=== PATIENT | male | born 1940 | race Caucasian/White ===

== ENCOUNTER 2017-04-08 10:47 | Inpatient (IN) | payer MEDICARE, OTHER ==
[~2017-04-08] VITALS: Ht 172.7 cm; Wt 85.3 kg
[2017-04-08] VITALS (11 sets, daily range): BP systolic 137–182; BP diastolic 69–116
[2017-04-08] MEDS ORDERED: NITROGLYCERIN PACKET 1 GM PACKET ONE (10:54)
[2017-04-08] MEDS ORDERED: ASPIRIN 325 MG TABLET ONE (10:55)
[2017-04-08] MEDS ORDERED: NITROGLYCERIN PACKET 1 GM PACKET TD ONE (11:00)
[2017-04-08] MEDS ORDERED: ASPIRIN 325 MG TABLET PO ONE (11:00)
--- NOTE | 2017-04-08 11:00 | NUR ---
SEBAS FROM HOME DT SOB- PATIENT RECEIVED AWAKE AND ALERT, APPEARS IN MILD DISTRESS. XNNECT98% ON ROOM AIR. SKIN IS WARM TO TOUCH AND NON DIAPHORETIC. PATIENT IS AFEBRILE. VSS.
[2017-04-08 11:12] LABS: BASOPHILS % (AUTO) 0.5 % (0.0-2.0); EOSINOPHILS # (AUTO) 0.2 /CMM (0.0-0.7); EOSINOPHILS % (AUTO) 1.8 % (0.0-6.0); HEMATOCRIT 44 % (39-51); HEMOGLOBIN 14.5 g/dL (13.5-17.5); LYMPHOCYTES # (AUTO) 1.4 /CMM (0.8-4.8); LYMPHOCYTES % (AUTO) 15.9 % (20.0-44.0); MEAN CORPUSCULAR HEMOGLOBIN 32 PG (26.0-33.0); MEAN CORPUSCULAR HGB CONC 33 g/dl (31.0-36.0); MEAN CORPUSCULAR VOLUME 97 fL (80-96); MONOCYTES # (AUTO) 0.9 /CMM (0.1-1.30); MONOCYTES % (AUTO) 9.4 % (2.0-12.0); NEUTROPHILS # (AUTO) 6.6 /CMM (1.8-8.9); NEUTROPHILS % (AUTO) 72.4 % (43.0-81.0); PLATELET COUNT (AUTO) 173 /CMM (150-450); RDW COEFFICIENT OF VARIATION 13.4 (11.5-15.0); RED BLOOD CELL COUNT(AUTO) 4.58 MIL/uL (4.5-6.0); WHITE BLOOD COUNT (AUTO) 9.1 K/uL (4.3-11.0)
[2017-04-08 11:25] LABS: INR 0.95 (0.87-1.13); PROTHROMBIN TIME 9.9 SECS (9.5-12.7)
[2017-04-08 11:26] LABS: CALCIUM, SERUM 9.1 mg/dL (8.5-10.1); CARBON DIOXIDE 29 mmol/L (21-32); CHLORIDE 105 mmol/L (98-107); CREATININE 1.3 mg/dL (0.6-1.3); GLUCOSE 107 mg/dL (74-106); POTASSIUM 4.1 mmol/L (3.5-5.1); SODIUM SERUM 141 mmol/L (136-145); UREA NITROGEN, BLOOD 23 mg/dL (7-18)
[2017-04-08] MEDS ORDERED: FUROSEMIDE 40 MG/4 ML VIAL ONE (11:33)
--- NOTE | 2017-04-08 11:34 | NUR ---
RT NOTE PT PLACED ON BIPAP PER MD ORDER. SETTINGS PRESCRIBED ST 15 RR 16 30%. ALARMS SET PER PROTOCOL AND AUDIBLE. AMBU BAG AT BED SIDE. BIPAP PLUGGED IN TO RED OUTLET. PT AWAKE AND ALERT. NO DISTRESS NOTED WILL CONTINUE TO MONITOR. Addendum: 04/08/17 at 1136 by RANJEET DAHL RT Amended: Links added.
[2017-04-08] MEDS: FUROSEMIDE 40 MG/4 ML VIAL IV ONE ×2 (11:37→11:38)
[2017-04-08 11:39] LABS: ALANINE AMINOTRANSFERASE 15 U/L (12-78); ALBUMIN 3.2 g/dL (3.4-5.0); ALKALINE PHOSPHATASE 93 U/L (46-116); ASPARTATE AMINOTRANSFERASE 15 U/L (15-37); B-TYPE NATRIURETIC PEPTIDE 3936 PG/ML (0-125); BILIRUBIN,DIRECT 0.1 mg/dL (0.0-0.2); BILIRUBIN,TOTAL 0.5 mg/dL (0.2-1.0); TOTAL PROTEIN, SERUM 7.2 g/dL (6.4-8.2)
[2017-04-08] MEDS ORDERED: IPRATROPIUM NEB FS 0.5 MG/2.5 ML AMPUL.NEB ONE (11:51)
[2017-04-08] MEDS ORDERED: ALBUTEROL FS 2.5 MG/3 ML VIAL.NEB ONE (11:51)
[2017-04-08] MEDS ORDERED: ALBUTEROL FS 2.5 MG/3 ML VIAL.NEB NEB ONE (12:00)
[2017-04-08] MEDS ORDERED: IPRATROPIUM NEB FS 0.5 MG/2.5 ML AMPUL.NEB NEB ONE (12:00)
[2017-04-08] MEDS ORDERED: NORMAL SALINE FLUSH 10 ML SYR IV SCH (13:00)
[2017-04-08] MEDS ORDERED: ACETAMINOPHEN 325 MG TABLET PO PRN (13:00)
[2017-04-08] MEDS ORDERED: ALBUTEROL FS 2.5 MG/3 ML VIAL.NEB NEB PRN (13:00)
[2017-04-08] MEDS ORDERED: ONDANSETRON HCL/PF 4 MG/2 ML VIAL IVP PRN (13:00)
--- NOTE | 2017-04-08 14:00 | NUR ---
RN INITIAL NOTES RECEIVED PT AWAKE, A/OX3. MONGOLIAN SPEAKING. ON 02 AT 3LPM VIA NC. NO RESPIRATORY DISTRESS NOTED. NO SOB NOTED. HOB ELEVATED. IV LINES IN PLACE. PLACED COMFORTABLY IN BED. PT CONNECTED TO MONITOR. ORIENTED TO ROOM AND USE OF CALL LIGHT. BODY ASSESSMENT DONE, PICTURES TAKEN AND PLACED IN THE CHART. BLE ELEVATED. DR. TORRES MADE AWARE OF ADMISSION. AWAITING FOR ADMISSION ORDERS. ANI (DTR) AT BEDSIDE.
--- NOTE | 2017-04-08 14:02 | NUR ---
PATIENT TRANSPORTED TO ICU. VSS
[2017-04-08] MEDS ORDERED: hydrALAZINE HCL IV 20 MG VIAL IV PRN (17:00)
--- NOTE | 2017-04-08 17:00 | NUR ---
RN NOTES SEEN AND EXAMINED BY DR. RAMOS. AWARE OF CURRENT LAB VALUES AND CXR. ORDERS NOTED AND CARRIED OUT.
[2017-04-08] MEDS: FUROSEMIDE 40 MG/4 ML VIAL IV SCH (17:15)
[2017-04-08] MEDS: LOSARTAN POTASSIUM 25 MG TABLET PO SCH (17:15)
--- NOTE | 2017-04-08 18:00 | NUR ---
RN NOTES SEEN AND EXAMINED BY DR. TORRES. AWARE OF CURRENT LAB VALUES AND CXR. MEDICATION LIST PROVIDED BY DAUGHTER. MD REVIEWED H&P AND HOME MEDS, MD CONTINUED MOST OF HOME MEDS. ALSO MADE AWARE THAT PT REFUSED CONDOM CATH. PT INSISTED TO USE URINAL INSTEAD. PT COMFORTABLE. WILL MONITOR.
--- NOTE | 2017-04-08 18:43 | NUR ---
RN CLOSING NOTES NO SIGNIFICANT CHANGE NOTED. DENIES ANY PAIN. ON 02 AT 3LPM VIA OK. NO SOB NOTED. HOB ELEVATED. IV LINES IN PLACE. PT CONTINENT, USES URINAL. PT CLEAN AND DRY. PT COMFORTABLE. BLE ELEVATED. CALL LIGHT WITHIN REACH. WILL ENDORSE FOR CONTINUITY OF CARE.
[2017-04-08] MEDS ORDERED: TAMSULOSIN 0.4 MG CAP.SR.24H ONE (20:17)
--- NOTE | 2017-04-08 20:30 | NUR ---
DOCTOR OF PODIATRIC MEDICINE - REC'D REPORT FROM ROSA MARIA RN. REC'D PT. SITTING UP IN BD, COMMUNICATION LIMITED. PT. IS AN ENGLISH SPEAK - ING GENTLEMAN WHO UNDERSTANDS LITTLE ROMANIAN. WILL USE NURSING CARE ATTENDANT/MARIOLA RN IF NECESSARY. NO S/S OF DISTRESS OR DISCOMFORT. PT. HAS A LEFT C/W PACER & IS A-PACING IN THE 60'S. PT.IS HYPERTENSIVE (SBP'S = 180'S). HYDRALAZINE 10 MG SLOW IVP ADM. FOR SBP'S. PT. IS ON O2/3L/NC W/O2 SATS >93%. LUNG BARBER AUSC. ARE DIM. THRU - OUT. AFEBRILE. BILAT. FEET ARE EDEMATOUS. PT. REFUSED DINNER. PT. IS USING URINAL. UOP GOOD. RAC & LAC PIV'S ARE BOTH PATENT TO FLUSH & ARE HL'D. CONT. POC.
[2017-04-08] MEDS: TAMSULOSIN 0.4 MG CAP.SR.24H PO SCH (21:33)
[2017-04-09] VITALS (40 sets, daily range): BP systolic 109–172; BP diastolic 51–98
--- NOTE | 2017-04-09 00:30 | NUR ---
EMISSION TECHNICIAN - HYDRALAZINE WORKED WELL. PT'S SBP'S ARE IN THE TEENS - 130'S. NO CHANGES FROM INITIAL ASSESSMENT. CONT. POC.
[2017-04-09 04:51] LABS: BASOPHILS % (AUTO) 0.2 % (0.0-2.0); EOSINOPHILS # (AUTO) 0.1 /CMM (0.0-0.7); EOSINOPHILS % (AUTO) 1.3 % (0.0-6.0); HEMATOCRIT 43 % (39-51); HEMOGLOBIN 14.4 g/dL (13.5-17.5); LYMPHOCYTES % (AUTO) 12.6 % (20.0-44.0); MEAN CORPUSCULAR HEMOGLOBIN 33 PG (26.0-33.0); MEAN CORPUSCULAR HGB CONC 33 g/dl (31.0-36.0); MEAN CORPUSCULAR VOLUME 98 fL (80-96); MONOCYTES # (AUTO) 0.7 /CMM (0.1-1.30); NEUTROPHILS % (AUTO) 76.9 % (43.0-81.0); PLATELET COUNT (AUTO) 173 /CMM (150-450); RDW COEFFICIENT OF VARIATION 14.1 (11.5-15.0); RED BLOOD CELL COUNT(AUTO) 4.43 MIL/uL (4.5-6.0); WHITE BLOOD COUNT (AUTO) 7.8 K/uL (4.3-11.0)
[2017-04-09 05:06] LABS: ALANINE AMINOTRANSFERASE 18 U/L (12-78); ALKALINE PHOSPHATASE 92 U/L (46-116); ASPARTATE AMINOTRANSFERASE 12 U/L (15-37); BILIRUBIN,TOTAL 0.6 mg/dL (0.2-1.0); CALCIUM, SERUM 9.1 mg/dL (8.5-10.1); CARBON DIOXIDE 32 mmol/L (21-32); CHLORIDE 106 mmol/L (98-107); CREATININE 1.4 mg/dL (0.6-1.3); GLUCOSE 114 mg/dL (74-106); MAGNESIUM 1.6 mg/dL (1.8-2.4); PHOSPHORUS 3.5 mg/dL (2.5-4.9); POTASSIUM 4.1 mmol/L (3.5-5.1); SODIUM SERUM 144 mmol/L (136-145); TOTAL PROTEIN, SERUM 6.9 g/dL (6.4-8.2); UREA NITROGEN, BLOOD 24 mg/dL (7-18)
--- NOTE | 2017-04-09 05:30 | NUR ---
RESEARCH COORDINATOR - PT. SLEPT INTERMITTENTLY THROUGH OUT THE NIGHT. USING DIRECTOR TARGETED MARKETING FOR JAPANESE SPEAKING PT. AM LABS DRAWN-PENDING RESULTS. WILL ENDORSE TO DAYSHIFT RN. NO S/S OF DISTRESS/DISCOMFORT. ALL PIV'S ARE PATENT TO FLUSH. PCXR DONE. PT. TOLERATED JELLO. PT. REMAINS ON A FULL LIQUID DIET. USING URINAL WELL-TOTAL URINE OUTPUT FOR 12 HR. SHIFT IS 1,195 CC. PT. IS ON O2/3L/NC, BUT TAKES IT OFF OCCASIONALLY. PT. WILL DESAT W/NC OFF. DIRECTOR TARGETED MARKETING EXPLAINED TO PT. THE IMPORTANCE OF LEAVING NC ON. HEART MONITOR SHOWS APACING IN THE 60'S. CONT. POC.
--- NOTE | 2017-04-09 07:47 | NUR ---
INITIAL DEVIL TENDER NOTE RCVD PT SLEEPING IN BED, EASILY AROUSED TO LIGHT TOUCH, PT ALERT/ORIENTED X4, WELSH SPEAKING ONLY. A PACING ON TELE WITH OCCASIONAL PACs/PVCs. TOLERATING O2 VIA NC. URINAL AT BEDSIDE. IV SITES C/D/I/PATENT. NO S/O INFILTRATION/PHLEBITIS OBSERVED UPON FLUSHING. WILL CONTINUE TO MONITOR PT FOR SAFETY AND COMFORT. CALL LIGHT WITHIN REACH. BED IN LOW AND LOCKED POSITION.
[2017-04-09] MEDS: PANTOPRAZOLE 40 MG VIAL IV SCH (09:08)
[2017-04-09] MEDS: FUROSEMIDE 40 MG/4 ML VIAL IV SCH (09:09)
[2017-04-09] MEDS: LOSARTAN POTASSIUM 25 MG TABLET PO SCH ×2 (09:09→17:07)
[2017-04-09] MEDS: ASPIRIN EC 81 MG TABLET.DR PO SCH (09:09)
[2017-04-09] MEDS: CYANOCOBALAMIN 500 MCG TABLET PO SCH (09:09)
[2017-04-09] MEDS: PAROXETINE HCL 20 MG TABLET PO SCH (09:09)
[2017-04-09] MEDS: CARBIDOPA/LEVODOPA 10/100 MG 1 UDTAB PO SCH ×2 (09:09→17:06)
[2017-04-09] MEDS: APIXABAN 5 MG TABLET PO SCH ×2 (09:10→17:06)
--- NOTE | 2017-04-09 10:37 | NUR ---
WOUND CARE CONSULT PATIENT SEEN AND SKIN INTEGRITY ASSESSMENT DONE. SEE THERAPEUTIC RADIOLOGIST ASSESSMENT IN PCS FOR TODAY ALONG WITH ALL RECOMMENDATIONS. PT WITH LINDA AT 18, INDEPENDENT WITH BED MOBILITY AND CONTINENT AT THIS TIME. SKIN MANAGEMENT DISCUSSED WITH NURSING AT THE BEDSIDE. WILL SEE PRN. Addendum: 04/09/17 at 1039 by MARIE MAS WNDNU Amended: Links added.
--- NOTE | 2017-04-09 11:08 | NUR ---
MULTI PURPOSE MACHINE OPERATOR NOTE PT'S DAUGHTERMOLLY AT BEDSIDE UPDATED ON PT'S CONDITION. QUESTIONS ANSWERED. PT'S AND COUSIN CAME TO VISIT LATER THEY WERE ALSO UPDATED ON PT'S CONDITION. SWALLOW EVAL PERFORMED BY SPEECH THERAPIST WHO RECOMMENDED MECHANICAL SOFT DIET. ORDER ENTERED.
[2017-04-09] MEDS: Magnesium 1GM/D5W 100ML PREMIX 100 ML IV SCH ×2 (11:34→13:01)
[2017-04-09] MEDS ORDERED: ASPI81TA2 PO (12:00)
[2017-04-09] MEDS ORDERED: POTA20TA83 PO (12:00)
[2017-04-09] MEDS ORDERED: VALS80TA2 PO (12:00)
[2017-04-09] MEDS ORDERED: APIX5TAB PO (12:00)
[2017-04-09] MEDS ORDERED: BUDE10.2 IH (12:00)
[2017-04-09] MEDS ORDERED: CARB1TAB19 PO (12:00)
[2017-04-09] MEDS ORDERED: CARV3.122 PO (12:00)
[2017-04-09] MEDS ORDERED: EZET10TA PO (12:00)
[2017-04-09] MEDS ORDERED: PARO40TA3 PO (12:00)
[2017-04-09] MEDS ORDERED: FURO-144 PO (12:00)
[2017-04-09] MEDS ORDERED: FURO-145 PO (12:00)
[2017-04-09] MEDS ORDERED: INDO25CA PO (12:00)
[2017-04-09] MEDS ORDERED: CYAN10006 IM (12:00)
[2017-04-09] MEDS ORDERED: DUTA0.5C PO (12:00)
[2017-04-09] MEDS ORDERED: ALLO300T2 PO (12:00)
[2017-04-09] MEDS ORDERED: VITA1TAB56 PO (12:00)
[2017-04-09] MEDS ORDERED: TAMS-12 PO (12:00)
[2017-04-09] MEDS ORDERED: SIMV20TA6 PO (12:00)
--- NOTE | 2017-04-09 13:31 | NUR ---
PLASTERER JOURNEYMAN NOTE PT UNABLE TO VOID ALL AM, BLADDER SCAN DONE OVER 200ML FOUND. BLADDER APPEARS DISTENDED. PT STATES THAT HE IS IN NO DISCOMFORT UPON PALPATION. PT'S COUSIN AND AT BEDSIDE TRANSLATED AND INFORMED PT OF FINDINGS. PT RECEIVED LASIX THIS AM, NO OUTPUT. HX OF BPH, PT OFFERED A [place]. PT AGREES. DR. TORRES UPDATED AND AGREES TO ORDER [place] CATH. UPON INSERTION 550 ML OF CLEAR, YELLOW URINE WERE OBSERVED. WILL CONTINUE TO MONITOR.
--- NOTE | 2017-04-09 15:11 | NUR ---
INCLINED RAILWAY OPERATOR NOTE PT TRANSFERRED TO CHAIR WITH MINIMAL ASSISTANCE, VITAL REMAIN STABLE, PT DENIES ANY DIZZINESS.
[2017-04-09] MEDS: FUROSEMIDE 40 MG TABLET PO SCH (17:06)
--- NOTE | 2017-04-09 18:45 | NUR ---
METAL CHECKER NOTE PT BACK IN BED, REMAINS STABLE, SHOWING NO S/O DISTRESS, OCCASIONALLY A-PACING, TOLERATING O2 VIA NC. [place] TO GRAVITY, DRAINING CLEAR, YELLOW URINE. IV SITES REMAIN STABLE C/D/I/PATENT. NO S/O INFILTRATION/PHLEBITIS OBSERVED. PT'S DAUGHTER AT BEDSIDE. PT'S CARE WILL BE ENDORSED TO SUPERVISOR ENGRAVING RN FOR CONTINUITY OF CARE. CALL LIGHT WITHIN REACH. BED IN LOW AND LOCKED POSITION.
--- NOTE | 2017-04-09 19:15 | NUR ---
RN INITIAL NOTES RECEIVED PATIENT IN BED, SLEEPING COMFORTABLY WITH NO DISTRESS OBSERVED. PATIENT IS EASILY AROUSABLE WITH VERBAL AND TACTILE STIMULI WITH NO C/O DISCOMFORT. PATIENT IS ON 3LPM OF O2 VIA NC, RESPIRATION IS EVEN AND UNLABORED, NOTED WITH CONGESTION ON AUSCULTATION. A-PACING ON TELE WITH OCCASIONAL PVCs. F/C INTACT AND DRAINING WELL WITH CLEAR, YELLOW URINE. R AND L AC PIV, INTACT AND PATENT, WITH NO SIGNS OF INFILTRATION. PATIENT'S NEEDS ANTICIPATED AND MET. SAFETY AND COMFORT ENSURED. BED IN LOW AND LOCKED POSITION. CALL LIGHT IN REACH. WILL MONITOR.
[2017-04-09] MEDS: TAMSULOSIN 0.4 MG CAP.SR.24H PO SCH (21:28)
[2017-04-10] VITALS (22 sets, daily range): BP systolic 121–161; BP diastolic 55–117
[2017-04-10 04:53] LABS: BASOPHILS % (AUTO) 0.1 % (0.0-2.0); EOSINOPHILS # (AUTO) 0.1 /CMM (0.0-0.7); EOSINOPHILS % (AUTO) 1.5 % (0.0-6.0); HEMATOCRIT 44 % (39-51); LYMPHOCYTES # (AUTO) 1.2 /CMM (0.8-4.8); LYMPHOCYTES % (AUTO) 13.8 % (20.0-44.0); MEAN CORPUSCULAR HEMOGLOBIN 33 PG (26.0-33.0); MEAN CORPUSCULAR HGB CONC 34 g/dl (31.0-36.0); MEAN CORPUSCULAR VOLUME 96 fL (80-96); MONOCYTES # (AUTO) 0.7 /CMM (0.1-1.30); MONOCYTES % (AUTO) 8.2 % (2.0-12.0); NEUTROPHILS # (AUTO) 6.5 /CMM (1.8-8.9); NEUTROPHILS % (AUTO) 76.4 % (43.0-81.0); PLATELET COUNT (AUTO) 190 /CMM (150-450); RDW COEFFICIENT OF VARIATION 14.1 (11.5-15.0); RED BLOOD CELL COUNT(AUTO) 4.59 MIL/uL (4.5-6.0); WHITE BLOOD COUNT (AUTO) 8.5 K/uL (4.3-11.0)
[2017-04-10 05:08] LABS: CALCIUM, SERUM 9.2 mg/dL (8.5-10.1); CARBON DIOXIDE 28 mmol/L (21-32); CHLORIDE 105 mmol/L (98-107); CREATININE 1.6 mg/dL (0.6-1.3); GLUCOSE 116 mg/dL (74-106); MAGNESIUM 2.3 mg/dL (1.8-2.4); PHOSPHORUS 3.9 mg/dL (2.5-4.9); POTASSIUM 4.5 mmol/L (3.5-5.1); SODIUM SERUM 142 mmol/L (136-145); UREA NITROGEN, BLOOD 29 mg/dL (7-18)
--- NOTE | 2017-04-10 06:47 | NUR ---
RN CLOSING NOTES PATIENT WITH NO ACUTE DISTRESS AND DISCOMFORT OBSERVED OVERNIGHT. PATIENT ABLE TO SLEEP COMFORTABLY THROUGH THE NIGHT WITH NO RESPIRATORY DISTRESS. ON 3LPM OF O2 VIA NC, RESPIRATION EVEN AND UNLABORED. PATIENT IS A-PACING WITH OCCASIONAL PVCs, HR IN THE 60s. PATIENT DIURESING WELL, I&O MONITORED. PIV ON R AND L AC, G20, REMAINS INTACT AND PATENT. PATIENT'S NEEDS ANTICIPATED AND MET. SAFETY AND COMFORT ENSURED. BED IN LOW AND LOCKED POSITION. AM LABS DRAWN. ALL DUE MEDS GIVEN ORDERED. WILL ENDORSE ACCORDINGLY FOR CONTINUITY OF CARE.
--- NOTE | 2017-04-10 07:27 | NUR ---
INITIAL PROPERTY CLAIMS MANAGER NOTE RCVD PT SLEEPING IN BED, EASILY AROUSED TO LIGHT TOUCH. A-PACING ON TELE. SHOWING NO S/O DISTRESS/PAIN. TOLERATING O2 VIA NC. [place] TO GRAVITY DRAINING WELL. IV SITES C/D/I/PATENT. NO S/O INFILTRATION/PHLEBITIS UPON FLUSHING. WILL CONTINUE TO MONITOR PT FOR SAFETY AND COMFORT. CALL LIGHT WITHIN REACH. BED IN LOW AND LOCKED POSITION.
[2017-04-10] MEDS: APIXABAN 5 MG TABLET PO SCH ×2 (09:38→17:27)
[2017-04-10] MEDS: ASPIRIN EC 81 MG TABLET.DR PO SCH (09:38)
[2017-04-10] MEDS: PAROXETINE HCL 20 MG TABLET PO SCH (09:38)
[2017-04-10] MEDS: PANTOPRAZOLE 40 MG VIAL IV SCH (09:38)
[2017-04-10] MEDS: CARBIDOPA/LEVODOPA 10/100 MG 1 UDTAB PO SCH ×2 (09:38→17:27)
[2017-04-10] MEDS: CARVEDILOL 3.125 MG TABLET PO SCH ×2 (09:39→22:29)
[2017-04-10] MEDS: LOSARTAN POTASSIUM 25 MG TABLET PO SCH ×2 (09:39→17:27)
--- NOTE | 2017-04-10 09:39 | NUR ---
SENIOR PAYROLL SPECIALIST NOTE SPOKE WITH FARTUN, PHARMACIST REGARDING PT'S LASIX, CREATININE TRENDING UP 1.6 THIS AM. PER FARTUN ONLY CONTRAINDICATION TO HOLD LASIX IS ANURIA. WILL ADMINISTER MEDICATION ORDERED.
[2017-04-10] MEDS: FUROSEMIDE 40 MG TABLET PO SCH (09:52)
[2017-04-10 11:24] LABS: ABG BASE EXCESS 4.2 mmol/L; ABG PCO2 47.8 mmHg (35.0-45.0); ABG PH 7.413 (7.350-7.450); ABG PO2 67.9 mmHg (75.0-100.0); AaDO2 111.6 mmHg; COHb 0.5 % (0.5-1.5); MetHb 0.8 % (0.0-1.5); O2Hb 91.8 % (94.0-97.0); SITE, ABG Right Radial; VENT MODE, BG nasal cannula
--- NOTE | 2017-04-10 12:18 | NUR ---
SINGING WAITER OR WAITRESS NOTE PT HAS POOR APPETITE, PT'S FAMILY AWARE. WILL CONTINUE TO MONITOR.
[2017-04-10] MEDS: CYANOCOBALAMIN 500 MCG TABLET PO SCH (12:47)
[2017-04-10] MEDS: IPRATROPIUM NEB FS 0.5 MG/2.5 ML AMPUL.NEB NEB SCH ×2 (14:33→19:30)
--- NOTE | 2017-04-10 19:04 | NUR ---
TRANSFER TRAINING ADMINISTRATOR NOTE PT TRANSFERRED TO TELE ROOM 103 VIA WHEELCHAIR PER PROTOCOL. PT'S DAUGHTER AT BEDSIDE. PT SHOWING NO S/O DISTRESS/PAIN. [place] TO GRAVITY DRAINING WELL. IV SITES REMAIN C/D/I/PATENT. NO S/O INFILTRATION/PHLEBITIS OBSERVED. PT'S CARE ENDORSED TO GLASS SMOOTHER RN. ALL BELONGINGS PACKED BY PT'S DAUGHTER AND TRANSPORTED WITH PT. MEDICATIONS IN CASSETTE TRANSFERRED WITH PT.
--- NOTE | 2017-04-10 19:11 | NUR ---
RN INITIAL NOTES RECEIVED PATIENT FROM ICU, RECEIVED ENDORSEMENT FROM RICCI, ICU NURSE. PATIENT WITH NO DISTRESS AT THIS TIME. ON 2LPM OF O2 VIA NC, RESPIRATION IS EVEN AND UNLABORED. PATIENT IS ALERT AND ORIENTED, CITIZEN OF [place] AND [place] SPEAKER, ABLE TO MAKE BASIC NEEDS KNOWN. DENIES ANY PAIN AND DISCOMFORT. PATIENT IS AFIB ON TELE, HR OF 60s, OCCASIONAL PACING AND PVCs NOTED. F/C INTACT AND DRAINING VIA GRAVITY. PIV ON R AND L AC FLUSHED AND KEPT PATENT, NO SIGNS OF INFILTRATION. PATIENT'S NEEDS ANTICIPATED AND MET. SAFETY AND COMFORT ENSURED. BED IN LOW AND LOCKED POSITION. CALL LIGHT IN REACH. WILL MONITOR CLOSELY.
[2017-04-10] MEDS: TAMSULOSIN 0.4 MG CAP.SR.24H PO SCH (22:29)
[2017-04-11] VITALS: BP 138/65
[2017-04-11] MEDS: IPRATROPIUM NEB FS 0.5 MG/2.5 ML AMPUL.NEB NEB SCH ×3 (01:03→13:24)
[2017-04-11 04:00] VITALS: BP 107/65
[2017-04-11 06:32] LABS: BASOPHILS % (AUTO) 0.3 % (0.0-2.0); EOSINOPHILS # (AUTO) 0.1 /CMM (0.0-0.7); EOSINOPHILS % (AUTO) 1.3 % (0.0-6.0); HEMATOCRIT 44 % (39-51); HEMOGLOBIN 14.7 g/dL (13.5-17.5); LYMPHOCYTES # (AUTO) 1.2 /CMM (0.8-4.8); LYMPHOCYTES % (AUTO) 15.6 % (20.0-44.0); MEAN CORPUSCULAR HEMOGLOBIN 32 PG (26.0-33.0); MEAN CORPUSCULAR HGB CONC 33 g/dl (31.0-36.0); MEAN CORPUSCULAR VOLUME 97 fL (80-96); MONOCYTES # (AUTO) 0.9 /CMM (0.1-1.30); MONOCYTES % (AUTO) 11.1 % (2.0-12.0); NEUTROPHILS # (AUTO) 5.7 /CMM (1.8-8.9); NEUTROPHILS % (AUTO) 71.7 % (43.0-81.0); PLATELET COUNT (AUTO) 188 /CMM (150-450); RDW COEFFICIENT OF VARIATION 14.6 (11.5-15.0); RED BLOOD CELL COUNT(AUTO) 4.55 MIL/uL (4.5-6.0); WHITE BLOOD COUNT (AUTO) 7.9 K/uL (4.3-11.0)
[2017-04-11 06:54] LABS: CALCIUM, SERUM 8.6 mg/dL (8.5-10.1); CARBON DIOXIDE 30 mmol/L (21-32); CHLORIDE 104 mmol/L (98-107); CREATININE 1.7 mg/dL (0.6-1.3); GLUCOSE 102 mg/dL (74-106); PHOSPHORUS 3.7 mg/dL (2.5-4.9); POTASSIUM 3.9 mmol/L (3.5-5.1); SODIUM SERUM 142 mmol/L (136-145); UREA NITROGEN, BLOOD 33 mg/dL (7-18)
--- NOTE | 2017-04-11 07:12 | NUR ---
RN INITIAL NOTES: REC'D PT ON BED ASLEEP, EASILY AWAKEN, A/O X3, BANGLADESHI SPEAKING, NOT IN ANY FORM OF DISTRESS. ON NC AT 2LPM, NO SOB NOTED. ON TELEMONITOR, AFIB W/ PACING, PVC'S PAC W/ HR 65 BPM. HAS FC PATENT & INTACT DRAINING TO YELLOWISH URINE OUTPUT. HAS 2 IV LINE ACCESS: R AC G20 AND L AC G20, SL, FLUSHED, PATENT & INTACT W/ NO S/SX OF INFECTION/INFILTRATION NOTED. PROVIDED COMFORT & SAFETY MEASURES. BED KEPT LOW & IN LOCKED POS. CALL LIGHT PLACED W/IN REACH. WILL CONTINUE TO MONITOR AND ATTEND PT NEEDS.
[2017-04-11 08:00] VITALS: BP 115/58
[2017-04-11] MEDS: PANTOPRAZOLE 40 MG VIAL IV SCH (08:41)
[2017-04-11] MEDS: CARBIDOPA/LEVODOPA 10/100 MG 1 UDTAB PO SCH (08:41)
[2017-04-11] MEDS: LOSARTAN POTASSIUM 25 MG TABLET PO SCH (08:42)
[2017-04-11] MEDS: PAROXETINE HCL 20 MG TABLET PO SCH (08:42)
[2017-04-11] MEDS: ASPIRIN EC 81 MG TABLET.DR PO SCH (08:42)
[2017-04-11] MEDS: CYANOCOBALAMIN 500 MCG TABLET PO SCH (08:42)
[2017-04-11] MEDS: CARVEDILOL 3.125 MG TABLET PO SCH (08:44)
[2017-04-11] MEDS: APIXABAN 5 MG TABLET PO SCH (08:46)
[2017-04-11] MEDS ORDERED: FUROSEMIDE 40 MG TABLET PO SCH (09:00)
[2017-04-11 12:00] VITALS: BP 96/57
[2017-04-11 16:00] VITALS: BP 119/68
--- NOTE | 2017-04-11 16:30 | NUR ---
MUMPS DEVELOPER NOTES: PT DC'D TO HOME W/ HOME HEALTH CARE ORDERED. DC DOCUMENTS AND INSTRUCTIONS GIVEN AND EXPLAINED TO PT'S DTR MARIVEL W/ VERBALIZATION OF UNDERSTANDING. ALL PAPERWORKS SIGNED BY DTR. BELONGINGS SENT HOME W/ PT. BELONGING LIST SIGNED BY DTR. TELEMONITOR REMOVED. IV LINE ACCESS REMOVED, APPLIED PRESSURE DRESSING, NO S/SX OF INFECTION NOTED. FC REMOVED. WOUND PHOTOS TAKEN AND PLACED IN CHART. PT LEFT THE FACILITY IN STABLE CONDITION VIA WHEELCHAIR, DENIES ANY DISCOMFORT/SOB, ACCOMPANIED BY DTR AND PBX TECHNICIAN. NO CONCERNS IDENTIFIED AT THIS TIME.
== END 2017-04-11 16:15 | disposition home health service (06) | DRG 291 ==
LOC: ER 10:48 → ICU 13:19 → TELE1 04-10 18:27
PROVIDERS: ADMIT Internal Medicine; ATTEND Internal Medicine
PROC: 5A09357 Assistance with Respiratory Ventilation, Less than 24 Consecutive Hours, Continuous Positive Airway Pressure (ICD-10-PCS; principal; 2017-04-08)
DX: I11.0 Hypertensive heart disease with heart failure (principal); J96.01 Acute respiratory failure with hypoxia; N17.0 Acute kidney failure with tubular necrosis; E44.1 Mild protein-calorie malnutrition; J44.1 Chronic obstructive pulmonary disease with (acute) exacerbation; J96.12 Chronic respiratory failure with hypercapnia; D63.8 Anemia in other chronic diseases classified elsewhere; E66.9 Obesity, unspecified; E78.5 Hyperlipidemia, unspecified; E83.42 Hypomagnesemia; F17.210 Nicotine dependence, cigarettes, uncomplicated; G20 Parkinson's disease; I25.10 Atherosclerotic heart disease of native coronary artery without angina pectoris; I25.5 Ischemic cardiomyopathy; I50.23 Acute on chronic systolic (congestive) heart failure; K21.9 Gastro-esophageal reflux disease without esophagitis; M10.9 Gout, unspecified; Z95.1 Presence of aortocoronary bypass graft; Z95.810 Presence of automatic (implantable) cardiac defibrillator; N40.0 Benign prostatic hyperplasia without lower urinary tract symptoms; Z68.28 Body mass index [BMI] 28.0-28.9, adult
CPT/HCPCS: 36415; 36600; 71010-TC; 80048-TC; 80053-TC; 80076-TC; 82803-TC; 83735-TC; 83880; 84100-TC; 84484-TC; 85025-TC; 85730-TC; 87081-TC; 92611-TC; 93307-TC; A4216; A4349; A4606; C9113; J0360; J1940; J3475; J7050; Z7610

== ENCOUNTER 2017-11-06 09:42 | Inpatient (IN) | payer MEDICARE, OTHER ==
[~2017-11-06] VITALS: Ht 165.1 cm; Wt 88.0 kg
[~2017-11-06 09:42] MED LIST: ALLO300T2 PO; APIX5TAB PO; ASPI-1169 PO; BUDE10.2 IH; CARB1TAB19 PO; CARV3.122 PO; CYAN10006 IM; DUTA0.5C PO; EZET10TA14 PO; FURO-144 PO; FURO-145 PO; PARO40TA4 PO; POTA20TA83 PO; SIMV20TA6 PO; TAMS-12 PO; VALS80TA2 PO; VITA1TAB56 PO
--- NOTE | 2017-11-06 09:50 | NUR ---
SEBAS 89 FROM HOME, C/O SOB SINCE LAST NIGHT. 5MG ALBUTEROL GIVEN EN ROUTE. IV ESTABLISHED ON RFA, 18G, EN ROUTE. O2 SAT 96% ON ROOM AIR. NO DISTRESS AT THIS TIME. BREATHING EVEN AND UNLABORED. A/OX 4. VITALS STABLE. SAFETY AND COMFORT MEASURES IN PLACE. AWAITING MD ORDERS.
[2017-11-06] MEDS ORDERED: NITROGLYCERIN 0.4 MG/TAB BOTTLE ONE (09:53)
[2017-11-06] MEDS ORDERED: ASPIRIN 325 MG TABLET ONE (09:53)
[2017-11-06 09:56] LABS: BASOPHILS % (AUTO) 0.3 % (0.0-2.0); EOSINOPHILS % (AUTO) 2.3 % (0.0-6.0); HEMATOCRIT 44 % (39-51); HEMOGLOBIN 14.7 g/dL (13.5-17.5); LYMPHOCYTES # (AUTO) 1.5 /CMM (0.8-4.8); LYMPHOCYTES % (AUTO) 16.2 % (20.0-44.0); MEAN CORPUSCULAR HGB CONC 34 g/dl (31.0-36.0); MEAN CORPUSCULAR VOLUME 96 fL (80-96); MONOCYTES # (AUTO) 0.9 /CMM (0.1-1.30); NEUTROPHILS # (AUTO) 6.9 /CMM (1.8-8.9); NEUTROPHILS % (AUTO) 72.2 % (43.0-81.0); PLATELET COUNT (AUTO) 233 /CMM (150-450); RDW COEFFICIENT OF VARIATION 13.9 (11.5-15.0); RED BLOOD CELL COUNT(AUTO) 4.54 MIL/uL (4.5-6.0); WHITE BLOOD COUNT (AUTO) 9.5 K/uL (4.3-11.0)
[2017-11-06] MEDS ORDERED: ASPIRIN 325 MG TABLET PO ONE (10:00)
[2017-11-06] MEDS ORDERED: NITROGLYCERIN 0.4 MG/TAB BOTTLE SL ONE (10:00)
[2017-11-06 10:11] LABS: TROPONIN I 0.057 ng/mL (0.00-0.056)
[2017-11-06 10:16] LABS: ALANINE AMINOTRANSFERASE 17 U/L (12-78); ALBUMIN 3.3 g/dL (3.4-5.0); ALKALINE PHOSPHATASE 112 U/L (46-116); ASPARTATE AMINOTRANSFERASE 17 U/L (15-37); B-TYPE NATRIURETIC PEPTIDE 8594 PG/ML (0-125); BILIRUBIN,DIRECT 0.1 mg/dL (0.0-0.2); BILIRUBIN,TOTAL 0.4 mg/dL (0.2-1.0); CALCIUM, SERUM 8.9 mg/dL (8.5-10.1); CARBON DIOXIDE 23 mmol/L (21-32); CHLORIDE 109 mmol/L (98-107); CREATININE 1.6 mg/dL (0.6-1.3); GLUCOSE 109 mg/dL (74-106); POTASSIUM 4.6 mmol/L (3.5-5.1); SODIUM SERUM 140 mmol/L (136-145); TOTAL PROTEIN, SERUM 7.3 g/dL (6.4-8.2); UREA NITROGEN, BLOOD 32 mg/dL (7-18)
--- NOTE | 2017-11-06 10:25 | NUR ---
LACQUER SIZER AT BEDSIDE.
[2017-11-06] MEDS ORDERED: FUROSEMIDE 40 MG/4 ML VIAL IV ONE (10:30)
[2017-11-06] MEDS ORDERED: FUROSEMIDE 40 MG/4 ML VIAL ONE (10:33)
[2017-11-06] MEDS ORDERED: FUROSEMIDE 20 MG/2 ML VIAL ONE (10:33)
--- NOTE | 2017-11-06 10:55 | NUR ---
CALLED [facility]
--- NOTE | 2017-11-06 11:35 | NUR ---
CALLED [facility] FOR PANEL AND KARYNA TIMMONS WAS PAGED.
--- NOTE | 2017-11-06 12:05 | NUR ---
REPORT GIVEN TO RNNO FOR MOHAMUD UPON ADMISSION.
--- NOTE | 2017-11-06 12:15 | NUR ---
PATIENT TRANSPORTED TO ROOM 108 FOR ADMISISON VIA ACLS PROTOCOL. RN, NO TO PROVIDE MOHAMUD.
[2017-11-06 12:30] VITALS: BP 118/74
--- NOTE | 2017-11-06 13:00 | NUR ---
RN NOTES RECEIVED PATIENT FROM ER VIA STRETCHER ACCOMPANIED BY 2 STAFF. TRANSFERRED TO BED SAFELY AND COMFORTABLY. ALERT AND ORIENTED. BRITISH SPEAKING. NO DISTRESS NOTED. BREATHING EVEN AND UNLABORED. 2LPM O2 VIA NASAL CANNULA WELL TOLERATED. WITH COMPLAINT OF PAIN AROUND THE LUNGS, CHEST AND ABDOMEN. VITAL SIGNS WNL. WILL CONTINUE TO MONITOR.
[2017-11-06] MEDS ORDERED: CYAN100096 PO (13:08)
[2017-11-06] MEDS ORDERED: MAG HYDROX/AL HYDROX/SIMETH 30 ML UDC PO PRN (15:00)
[2017-11-06] MEDS ORDERED: ONDANSETRON HCL/PF 4 MG/2 ML VIAL IVP PRN (15:00)
[2017-11-06] MEDS ORDERED: ACETAMINOPHEN 325 MG TABLET PO PRN (15:00)
[2017-11-06] MEDS ORDERED: MAGNESIUM HYDROXIDE 30 ML UDC PO PRN (15:00)
[2017-11-06] MEDS ORDERED: Z GUARD REMEDY 2 OZ OINT TP PRN (15:00)
[2017-11-06 16:00] VITALS: BP 133/69
[2017-11-06 16:36] VITALS: BP 133/69
--- NOTE | 2017-11-06 17:00 | NUR ---
BISCUIT MACHINE OPERATOR NOTES REPORT OBTAINED FROM KRIS. PATIENT RECEIVED RESTING INSIDE ROOM. AWAKE, ALERT AND ORIENTED. VERBALLY RESPONSIVE AND RESPONDS TO VERBAL AND TACTILE STIMULI. DENIES ANY PAIN OR DISCOMFORT. LAO SPEAKING ONLY. NO CHANGES IN LOC NOTED. WILL CONTINUE TO MONITOR
[2017-11-06] MEDS: CARBIDOPA/LEVODOPA 10/100 MG 1 UDTAB PO SCH (17:11)
[2017-11-06] MEDS: CARVEDILOL 3.125 MG TABLET PO SCH (17:12)
--- NOTE | 2017-11-06 19:06 | NUR ---
CLERICAL WAREHOUSEMAN NOTES PATIENT RESTING INSIDE ROOM, AWAKE, ALERT AND ORIENTED. CITIZEN OF [place] SPEAKING ONLY. VERBALLY RESPONSIVE AND RESPONDS TO VERBAL AND TACTILE STIMULI. DENIES ANY PAIN OR DISCOMFORT. NO CHANGES IN LOC NOTED. PATIENT CALM AND RELAXED. WILL ENDORSE TO INCOMING SHIFT. BED LOCKED AND IN LOW POSITION. BILATERAL UPPER SIDE RAILS UP AND LOCKED. CALL LIGHT WITHIN EASY REACH
--- NOTE | 2017-11-06 19:45 | NUR ---
TELE/RN NOTES RECEIVED PT IN STABLE CONDITION. A&OX 2-3. JAPANESE, SPEAKS AND UNDERSTANDS SOME FRISIAN. ASSISTED WITH TRANSLATION BY MARGOT KATZ. ON RA SAT 95%, NO C/O OF SOB, NO ACCESSORY MUSCLES USE. PATIENT TAKING OFF O2 NASAL CANNULA AT BEDSIDE AND ENCOURAGED TO USE. 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 PACEMAKER ON BUT NOT "FIRING". NAD NOTED. RFA IV #18G, SITE CDI AND PATENT. PATIENT MADE AWARE OF PLAN OF CARE INCLUDING US KIDNEYS AND LABS DRAWN IN AM. VERBALIZED UNDERSTANDING. C/O OF PAIN TO LEFT KNEE, EDEMA +2> RIGHT KNEE. NO OTHER CONCERNS MADE. BED ALARM ON, BED AT LOWEST POSITION AND LOCKED. SIDE TABLE AND CALL RAMIREZ WITHIN REACH. WILL CONTINUE TO MONITOR.
[2017-11-06 20:00] VITALS: BP 122/86
[2017-11-06] MEDS: HEPARIN SODIUM, PORCINE 5000 UNITS/1 ML VIAL SQ SCH (21:12)
[2017-11-07] VITALS (8 sets, daily range): BP systolic 108–147; BP diastolic 67–95
[2017-11-07] MEDS: HYDROCODONE/APAP 5/325MG 1 EACH TABLET PO PRN (01:30)
--- NOTE | 2017-11-07 01:33 | NUR ---
TELE/RN NOTES PATIENT C/O OF DIFFICULTY BREATHING ON O2 2L NC. PLACE ON O2 3L AND IN UPRIGHT POSITION, SAT 99%. BP 155/85, HR 61. STATES HE FEELS BETTER. C/O OF LEFT KNEE PAIN, 9.5/10, EDEMA +1, NO REDNESS. ADMINISTERED NORCO X 1. NAD NOTED. WILL CONTINUE TO MONITOR. CALL RAMIREZ WITHIN REACH.
[2017-11-07 06:30] LABS: BASOPHILS % (AUTO) 0.2 % (0.0-2.0); EOSINOPHILS % (AUTO) 2.5 % (0.0-6.0); HEMATOCRIT 42 % (39-51); HEMOGLOBIN 14.1 g/dL (13.5-17.5); LYMPHOCYTES # (AUTO) 1.2 /CMM (0.8-4.8); LYMPHOCYTES % (AUTO) 17.1 % (20.0-44.0); MEAN CORPUSCULAR HGB CONC 33 g/dl (31.0-36.0); MEAN CORPUSCULAR VOLUME 100 fL (80-96); MONOCYTES # (AUTO) 0.6 /CMM (0.1-1.30); MONOCYTES % (AUTO) 7.9 % (2.0-12.0); NEUTROPHILS # (AUTO) 5.1 /CMM (1.8-8.9); NEUTROPHILS % (AUTO) 72.3 % (43.0-81.0); PLATELET COUNT (AUTO) 207 /CMM (150-450); RDW COEFFICIENT OF VARIATION 14.6 (11.5-15.0); RED BLOOD CELL COUNT(AUTO) 4.22 MIL/uL (4.5-6.0); WHITE BLOOD COUNT (AUTO) 7.1 K/uL (4.3-11.0)
[2017-11-07 06:50] LABS: CALCIUM, SERUM 8.6 mg/dL (8.5-10.1); CARBON DIOXIDE 26 mmol/L (21-32); CHLORIDE 110 mmol/L (98-107); CREATININE 1.4 mg/dL (0.6-1.3); GLUCOSE 94 mg/dL (74-106); MAGNESIUM 1.8 mg/dL (1.8-2.4); PHOSPHORUS 3.9 mg/dL (2.5-4.9); POTASSIUM 4.2 mmol/L (3.5-5.1); SODIUM SERUM 144 mmol/L (136-145); UREA NITROGEN, BLOOD 30 mg/dL (7-18)
[2017-11-07 07:01] LABS: CHOLESTEROL 192 mg/dL (<200); HDL CHOLESTEROL 37 mg/dL (40-60); LDL 131 mg/dL (0-99); THYROID STIMULATING HORMONE 1.136 uIU/mL (0.358-3.74); TRIGLYCERIDES 154 mg/dL (30-150)
--- NOTE | 2017-11-07 07:10 | NUR ---
DOPE SPRAYER OPENING NOTES RECEIVED PT IN BED. A&OX 2-3. CROATIAN, SPEAKS AND UNDERSTANDS SOME HONDURAN. NO C/O OF SOB, NO ACCESSORY MUSCLES USE. PATIENT TAKING OFF O2 NASAL CANNULA PLACED BACK CANULA AND EDUCATED THE NEED FOR O2. ON TELE MONITOR SR 63, WITH BBB AND V PACING.HAS PACEMAKER . NAD NOTED. RFA IV #18G, SITE CDI AND PATENT. PATIENT MADE AWARE OF PLAN OF CARE INCLUDING US KIDNEYS AND LABS DRAWN IN AM. VERBALIZED UNDERSTANDING. EDEMA +2> RIGHT KNEE. BED ALARM ON, BED AT LOWEST POSITION AND LOCKED. SIDERAILSX3. CALL RAMIREZ WITHIN REACH. WILL CONTINUE TO MONITOR.
--- NOTE | 2017-11-07 07:20 | NUR ---
TELE/RN NOTES PATIENT RESTING IN BED WITH EYES CLOSED. BREATHING EVENLY ON O2 2.5L NC, SAT 98%. VPACING, NO DISTRESS NOTED. VOIDING. LEFT KNEE EDEMA +2. C/O OF PAIN TO AREA AND ADMINISTERED NORCO X 1 WITH SOME RELIEF. NO OTHER CONCERNS MADE. ALL NEEDS MET. BED AT LOWEST POSITION AND LOCKED, SR X 2 UP. SIDE TABLE AND CALL RAMIREZ WITHIN REACH. PATIENT STABLE.
[2017-11-07] MEDS: PAROXETINE HCL 20 MG TABLET PO SCH (08:49)
[2017-11-07] MEDS: CARVEDILOL 3.125 MG TABLET PO SCH ×2 (08:50→16:09)
[2017-11-07] MEDS: ASPIRIN 81 MG TAB.CHEW PO SCH (08:50)
[2017-11-07] MEDS: CYANOCOBALAMIN 500 MCG TABLET PO SCH (08:52)
[2017-11-07] MEDS: DUTASTERIDE (0.5 MG) 0.5 MG CAPSULE PO SCH (09:00)
[2017-11-07] MEDS: SIMVASTATIN 20 MG TABLET PO SCH (09:00)
[2017-11-07] MEDS: VITAMIN B COMP W-C 1 TAB TABLET PO SCH (09:00)
[2017-11-07] MEDS: CARBIDOPA/LEVODOPA 10/100 MG 1 UDTAB PO SCH ×2 (09:00→16:08)
[2017-11-07] MEDS: HEPARIN SODIUM, PORCINE 5000 UNITS/1 ML VIAL SQ SCH ×2 (09:01→21:38)
[2017-11-07] MEDS: ALLOPURINOL 100 MG TABLET PO SCH (09:04)
[2017-11-07] MEDS ORDERED: acetaZOLAMIDE SODIUM 500 MG/VIAL VIAL IV ONE (10:30)
--- NOTE | 2017-11-07 11:09 | NUR ---
NETWORK STRATEGIST NOTES CALL MADE TO DAUGHTER MARIVEL , PER PHARMACY REQUEST .REQUESTED FAMILY IF THEY CAN PROVIDE THE SYMBICORT.SHE SAID SHE WILL BRING THE MEDICATION WHEN SHE COMES TO THE HOSPITAL.
--- NOTE | 2017-11-07 12:00 | NUR ---
RECRUITER ACCOUNT MANAGER NOTE ECHOCARDIOGRAM DONE.EF IS 20%.NOTIFIED PIPELAYING FITTER FREDDY TIMMONS.CONTINUE TO MONITOR.
--- NOTE | 2017-11-07 12:13 | NUR ---
INITIAL ECHOCARDIOGRAM SHOWED EF 20%~. INFORMED NURSE (CHANTEL) AND SENT SMS TO DR. HOUSTON.
--- NOTE | 2017-11-07 12:39 | NUR ---
FLEXOGRAPHIC PRESS SET UP OPERATOR NOTE BROUGHT MEDICATION SYMBICORT BY DAUGHTER.GIVEN TO PHARMACY FOR LABELLING.
[2017-11-07] MEDS: Budesonide/Formoterol Fumarate (Symbicort 160-4.5 Mcg INH SCH ×2 (13:43→16:08)
--- NOTE | 2017-11-07 19:20 | NUR ---
ALL TERRAIN VEHICLE TECHNICIAN SHIFT END NOTES PT IN BED. A&OX 2-3. HUNGARIAN, SPEAKS AND UNDERSTANDS SOME ITALIAN. NO C/O OF SOB, NO ACCESSORY MUSCLES USE. PATIENT TAKING OFF O2 NASAL CANNULA PLACED BACK CANULA AND EDUCATED THE NEED FOR O2. ON TELE MONITOR SR 64, WITH BBB AND V PACING.HAS PACEMAKER . NAD NOTED. RFA IV #18G, SITE CDI AND PATENT. SMALL BUMP NOTED AT L THE KNEE.PICTURE TAKEN AND WILL FOLLOW UP WITH PRIMARY DOCTOR,ENDORSED TO PM NURSE. BED ALARM ON, BED AT LOWEST POSITION AND LOCKED. SIDERAILSX3. CALL RAMIREZ WITHIN REACH. ENDORSED TO PM NURSE FOR MOHAMUD.
--- NOTE | 2017-11-07 20:05 | NUR ---
RN NOTES RECEIVED PATIENT AWAKE IN BED WATCHING TV WITH NO RESPIRATORY DISTRESS OR SHORTNESS OF BREATH. BREATHING EVEN AND UNLABORED. NO COMPLAINT OF PAIN OF THIS TIME. ALERT AND ORIENTED, SAUDI ARABIAN SPEAKING. WILL CONTINUE TO MONITOR.
[2017-11-08] VITALS: BP 119/79
[2017-11-08] MEDS: HYDROCODONE/APAP 5/325MG 1 EACH TABLET PO PRN ×2 (02:22→08:23)
[2017-11-08 04:00] VITALS: BP 132/84
[2017-11-08 04:25] VITALS: BP 132/84
[2017-11-08 06:40] LABS: BASOPHILS % (AUTO) 0.2 % (0.0-2.0); EOSINOPHILS % (AUTO) 2.3 % (0.0-6.0); HEMATOCRIT 43 % (39-51); HEMOGLOBIN 14.1 g/dL (13.5-17.5); LYMPHOCYTES # (AUTO) 1.2 /CMM (0.8-4.8); LYMPHOCYTES % (AUTO) 18.7 % (20.0-44.0); MEAN CORPUSCULAR HGB CONC 33 g/dl (31.0-36.0); MEAN CORPUSCULAR VOLUME 101 fL (80-96); MONOCYTES # (AUTO) 0.5 /CMM (0.1-1.30); MONOCYTES % (AUTO) 8.6 % (2.0-12.0); NEUTROPHILS # (AUTO) 4.5 /CMM (1.8-8.9); NEUTROPHILS % (AUTO) 70.2 % (43.0-81.0); PLATELET COUNT (AUTO) 182 /CMM (150-450); RDW COEFFICIENT OF VARIATION 14.7 (11.5-15.0); RED BLOOD CELL COUNT(AUTO) 4.23 MIL/uL (4.5-6.0); WHITE BLOOD COUNT (AUTO) 6.4 K/uL (4.3-11.0)
[2017-11-08 07:15] LABS: CALCIUM, SERUM 8.7 mg/dL (8.5-10.1); CARBON DIOXIDE 25 mmol/L (21-32); CHLORIDE 110 mmol/L (98-107); CREATININE 1.4 mg/dL (0.6-1.3); GLUCOSE 90 mg/dL (74-106); POTASSIUM 4.5 mmol/L (3.5-5.1); SODIUM SERUM 143 mmol/L (136-145); UREA NITROGEN, BLOOD 30 mg/dL (7-18)
--- NOTE | 2017-11-08 07:35 | NUR ---
RN NOTE RECEIVED PATIENT AWAKE IN BED ALERT AND ORIENTED X 2-3. HE IS ABLE TO MAKE THINGS KNOWN AND VERBALIZE NEEDS IN HIS [place] LANGUAGE [place]. BREATHING EVEN AND UNLABORED WITH NO DISTRESS NOTED. ON CONTINUOUS 2L O2 VIA NASAL CANNULA. ON OUTSIDE SALES EXECUTIVE SR WITH BBB HR OF 61 AND V PACING . RIGHT FA IV SITE INTACT AND PATENT. ALL SAFETY MEASURES DONE. BED LOW AND LOCKED POSITION. PLACED CALL LIGHT WITHIN REACH. WILL CONTINUE TO MONITOR.
[2017-11-08 08:00] VITALS: BP 121/72
[2017-11-08] MEDS: Budesonide/Formoterol Fumarate (Symbicort 160-4.5 Mcg INH SCH (08:21)
[2017-11-08] MEDS: PAROXETINE HCL 20 MG TABLET PO SCH (08:22)
[2017-11-08] MEDS: ASPIRIN 81 MG TAB.CHEW PO SCH (08:22)
[2017-11-08] MEDS: CYANOCOBALAMIN 500 MCG TABLET PO SCH (08:22)
[2017-11-08] MEDS: ALLOPURINOL 100 MG TABLET PO SCH (08:22)
[2017-11-08] MEDS: DUTASTERIDE (0.5 MG) 0.5 MG CAPSULE PO SCH (08:22)
[2017-11-08] MEDS: VITAMIN B COMP W-C 1 TAB TABLET PO SCH (08:22)
[2017-11-08] MEDS: SIMVASTATIN 20 MG TABLET PO SCH (08:22)
[2017-11-08] MEDS: CARBIDOPA/LEVODOPA 10/100 MG 1 UDTAB PO SCH (08:22)
[2017-11-08] MEDS: CARVEDILOL 3.125 MG TABLET PO SCH (08:23)
[2017-11-08] MEDS: HEPARIN SODIUM, PORCINE 5000 UNITS/1 ML VIAL SQ SCH (08:25)
[2017-11-08] MEDS ORDERED: FUROSEMIDE 40 MG TABLET PO SCH (10:00)
[2017-11-08] MEDS ORDERED: DOCU-141 PO (11:50)
[2017-11-08] MEDS ORDERED: FURO40TA5 PO (11:50)
[2017-11-08 12:00] VITALS: BP 124/80
--- NOTE | 2017-11-08 13:50 | NUR ---
RN NOTE 77 YEAR OLD MAKE DISCHARGED TO HOME IN STABLE CONDITION. COMPLIANT WITH MEDICATIONS, COOPERATIVE WITH TREATMENT PLANS. INSTRUCTED PATIENT TO GO TO CLOSEST ER IF SYMPTOMS WORSENS. MEDICAL TREATMENT PLANS DEFERRED FOR CONTINUAL MONITORING. EDUCATED PATIENT ABOUT AFTER CARE PLAN AND COPIES PROVIDED. RETURNED PERSONAL BELONGINGS TO PATIENT. MEDICATIONS RECONCILED. PATIENT SIGNED DISCHARGE PAPERWORK. REMOVED RIGHT FA IV, CATHETER REMOVAL INTACT. WOUND PICTURES TAKEN AND DOCUMENTED IN CHART. PATIENT LEFT THE UNIT AT 1350 VIA PRIVATE CAR WITH AND DAUGHTER MARIVEL.
== END 2017-11-08 14:10 | disposition home health service (06) | DRG 280 ==
LOC: ER 09:43 → TELE-TD 11:18 → TELE1 12:20 → MEDSG1 11-08 10:06
PROVIDERS: ADMIT Nurse Practitioner Acute Care; ATTEND Nurse Practitioner Acute Care
DX: I13.0 Hypertensive heart and chronic kidney disease with heart failure and stage 1 through stage 4 chronic kidney disease, or unspecified chronic kidney disease (principal); I50.23 Acute on chronic systolic (congestive) heart failure; I21.A1 Myocardial infarction type 2; E44.1 Mild protein-calorie malnutrition; N17.9 Acute kidney failure, unspecified; N18.9 Chronic kidney disease, unspecified; I25.10 Atherosclerotic heart disease of native coronary artery without angina pectoris; Z95.1 Presence of aortocoronary bypass graft; Z95.810 Presence of automatic (implantable) cardiac defibrillator; E78.5 Hyperlipidemia, unspecified; G20 Parkinson's disease; M10.9 Gout, unspecified; Z68.32 Body mass index [BMI] 32.0-32.9, adult; I48.91 Unspecified atrial fibrillation; J40 Bronchitis, not specified as acute or chronic; K21.9 Gastro-esophageal reflux disease without esophagitis; I25.2 Old myocardial infarction; F17.210 Nicotine dependence, cigarettes, uncomplicated
CPT/HCPCS: 36415; 71045-TC; 74018; 76770-TC; 80048-TC; 80061-TC; 80076-TC; 83735-TC; 83880; 84100-TC; 84443-TC; 84484-TC; 85025-TC; 87081-TC; 93307-TC; A4606; J1120; J1644; J1940; Z7610

== ENCOUNTER 2018-02-04 10:59 | Inpatient (IN) | payer MEDICARE, OTHER ==
[~2018-02-04] VITALS: Ht 167.6 cm; Wt 83.0 kg
[~2018-02-04 10:59] MED LIST changes: -APIX5TAB PO; -CYAN10006 IM; +CYAN100096 PO; +DOCU-141 PO; -EZET10TA14 PO; -FURO-144 PO; +FURO40TA5 PO; -TAMS-12 PO; -VALS80TA2 PO
--- NOTE | 2018-02-04 11:16 | NUR ---
SEBAS FROM HOME DT SOB AND HIGH BLOOD PRESSURE. NITRO GIVEN IN THE FIELD. PATIENT IS AWAKE AND ALERT, NOT IN DISTRESS. SKIN IS WARM TO TOUCH AND NON DIAPHORETIC. AFEBRILE. VSS
[2018-02-04] MEDS ORDERED: FUROSEMIDE 20 MG/2 ML VIAL ONE (11:28)
[2018-02-04] MEDS ORDERED: FUROSEMIDE 40 MG/4 ML VIAL ONE (11:28)
[2018-02-04] MEDS ORDERED: ENALAPRILAT DIHYD. (2.5MG/ML) 1.25 MG/ML VIAL IV ONE (11:28)
[2018-02-04] MEDS ORDERED: ASPIRIN 325 MG TABLET ONE (11:29)
[2018-02-04] MEDS ORDERED: ASPIRIN 325 MG TABLET PO ONE (11:30)
[2018-02-04] MEDS ORDERED: ENALAPRILAT INJ (1.25 MG/ML) 1.25 MG/ML VIAL IV PRN (11:30)
[2018-02-04] MEDS ORDERED: FUROSEMIDE 40 MG/4 ML VIAL IV ONE (11:30)
[2018-02-04] MEDS ORDERED: METO2.5T2 PO (11:43)
[2018-02-04] MEDS ORDERED: APIX5TAB PO (11:43)
[2018-02-04] MEDS ORDERED: LOSA50TA21 PO (11:43)
[2018-02-04] MEDS ORDERED: INDO25CA18 PO (11:43)
[2018-02-04] MEDS ORDERED: EZET10TA14 PO (11:43)
[2018-02-04] MEDS ORDERED: TAMS-12 PO (11:43)
[2018-02-04] MEDS ORDERED: FURO-144 PO (11:43)
[2018-02-04 11:46] LABS: BASOPHILS # (AUTO) 0.1 /CMM (0.0-0.2); BASOPHILS % (AUTO) 0.7 % (0.0-2.0); EOSINOPHILS % (AUTO) 0.6 % (0.0-6.0); HEMATOCRIT 43 % (39-51); HEMOGLOBIN 14.2 g/dL (13.5-17.5); LYMPHOCYTES # (AUTO) 0.7 /CMM (0.8-4.8); LYMPHOCYTES % (AUTO) 7.1 % (20.0-44.0); MEAN CORPUSCULAR HEMOGLOBIN 32 PG (26.0-33.0); MEAN CORPUSCULAR HGB CONC 33 g/dl (31.0-36.0); MEAN CORPUSCULAR VOLUME 98 fL (80-96); MONOCYTES # (AUTO) 0.8 /CMM (0.1-1.30); MONOCYTES % (AUTO) 7.7 % (2.0-12.0); NEUTROPHILS # (AUTO) 8.4 /CMM (1.8-8.9); NEUTROPHILS % (AUTO) 83.9 % (43.0-81.0); PLATELET COUNT (AUTO) 180 /CMM (150-450); RDW COEFFICIENT OF VARIATION 13.5 (11.5-15.0); RED BLOOD CELL COUNT(AUTO) 4.42 MIL/uL (4.5-6.0); WHITE BLOOD COUNT (AUTO) 10.1 K/uL (4.3-11.0)
[2018-02-04 11:57] LABS: CALCIUM, SERUM 8.9 mg/dL (8.5-10.1); CARBON DIOXIDE 25 mmol/L (21-32); CHLORIDE 105 mmol/L (98-107); CREATININE 1.7 mg/dL (0.6-1.3); GLUCOSE 112 mg/dL (74-106); POTASSIUM 4.3 mmol/L (3.5-5.1); SODIUM SERUM 137 mmol/L (136-145); UREA NITROGEN, BLOOD 36 mg/dL (7-18)
[2018-02-04 12:03] LABS: ALANINE AMINOTRANSFERASE 21 U/L (12-78); ALBUMIN 3.2 g/dL (3.4-5.0); ALKALINE PHOSPHATASE 103 U/L (46-116); ASPARTATE AMINOTRANSFERASE 20 U/L (15-37); BILIRUBIN,DIRECT 0.1 mg/dL (0.0-0.2); BILIRUBIN,TOTAL 0.6 mg/dL (0.2-1.0); LIPASE 134 U/L (73-393); TOTAL PROTEIN, SERUM 7.1 g/dL (6.4-8.2)
[2018-02-04 12:12] LABS: TROPONIN I 0.068 ng/mL (0.00-0.056)
[2018-02-04 12:23] LABS: INR 0.98 (0.87-1.13)
--- NOTE | 2018-02-04 12:38 | NUR ---
george called its dr. samuel
--- NOTE | 2018-02-04 12:57 | NUR ---
REPORT GIVEN TO MARGOT PRATT
--- NOTE | 2018-02-04 13:03 | NUR ---
PAGED DR HOUSTON.
[2018-02-04 13:30] VITALS: BP 181/84
[2018-02-04] MEDS ORDERED: HYDROCODONE/APAP 5/325MG 1 EACH TABLET PO PRN (13:30)
[2018-02-04] MEDS ORDERED: MAGNESIUM HYDROXIDE 30 ML UDC PO PRN (13:30)
[2018-02-04] MEDS ORDERED: ZOLPIDEM TARTRATE 5 MG TABLET PO PRN (13:30)
[2018-02-04] MEDS ORDERED: ACETAMINOPHEN 325 MG TABLET PO PRN (13:30)
[2018-02-04] MEDS ORDERED: ONDANSETRON HCL/PF 4 MG/2 ML VIAL IVP PRN (13:30)
[2018-02-04] MEDS ORDERED: MAG HYDROX/AL HYDROX/SIMETH 30 ML UDC PO PRN (13:30)
[2018-02-04] MEDS ORDERED: Z GUARD REMEDY 2 OZ OINT TP PRN (13:30)
--- NOTE | 2018-02-04 13:30 | NUR ---
ms rn received a new admission from er. a 78 year old man, came in w/ dx of chf exacerbation, awake,alert,oriented x3, namibian speaking, not in any form of distress, respirations even and unlabored, no sob noted. lungs have crckles,abdomen spft,positive bowel sounds,denies pain at this time,all needs attended.
--- NOTE | 2018-02-04 15:00 | NUR ---
ms rn was seen by dr. bryson, no new order added.
[2018-02-04 16:00] VITALS: BP 126/80
[2018-02-04] MEDS ORDERED: FUROSEMIDE 40 MG/4 ML VIAL IV SCH (17:00)
[2018-02-04] MEDS: CARVEDILOL 3.125 MG TABLET PO SCH (17:49)
--- NOTE | 2018-02-04 18:45 | NUR ---
ms rn on bed, no distress noted,all needs attended.
[2018-02-04] MEDS: CARBIDOPA/LEVODOPA 10/100 MG 1 UDTAB PO SCH (19:01)
[2018-02-04] MEDS: APIXABAN 5 MG TABLET PO SCH (19:01)
--- NOTE | 2018-02-04 19:20 | NUR ---
TELE/RN NOTES RECEIVED PT. LYING IN BED. PT. IS AWAKE, ALERT X3. BREATHING EVEN AND UNLABORED ON 2LPM O2 VIA NC. NO SOB, RESPIRATORY DISTRESS OR COMPLAINTS OF PAIN NOTED AT THIS TIME. PT. WITH EXTERNAL LIFE SKILLS TRAINER PRESENT AND INTACT CURRENT RHYTHM = SINUS RHYTHM HR 68. PT. WITH RIGHT FOREARM 20 GAUGE IV SALINE LOCK PRESENT, PATENT AND INTACT. BED LOCKED AND IN LOWEST POSITION, SIDE RAILS UP X2, BED ALARM ON, CALL LIGHT WITHIN REACH, WILL CONTINUE TO MONITOR.
[2018-02-04 20:00] VITALS: BP 123/60
[2018-02-05] VITALS: BP 126/84
[2018-02-05 04:00] VITALS: BP 139/73
--- NOTE | 2018-02-05 06:50 | NUR ---
TELE/RN NOTES PT. IS LYING IN BED RESTING. PT. IS AWAKE, ALERT X3. BREATHING EVEN AND UNLABORED ON 2LPM O2 VIA NC. NO SOB, RESPIRATORY DISTRESS OR COMPLAINTS OF PAIN NOTED AT THIS TIME AND THROUGHOUT SHIFT. NO COMPLAINTS OF CHEST PAIN NOTED AT THIS TIME AND THROUGHOUT SHIFT. PT. WITH EXTERNAL PROFESSOR OF GENETICS PRESENT AND INTACT CURRENT RHYTHM = SINUS RHYTHM HR 65. PT. WITH RIGHT FOREARM 20 GAUGE IV SALINE LOCK PRESENT, PATENT AND INTACT. ALL PT. NEEDS MET. BED LOCKED AND IN LOWEST POSITION, SIDE RAILS UP X2, BED ALARM ON, CALL LIGHT WITHIN REACH, WILL ENDORSE TO DAYSHIFT NURSE FOR CONTINUITY OF CARE.
[2018-02-05 06:54] LABS: BASOPHILS % (AUTO) 0.1 % (0.0-2.0); EOSINOPHILS % (AUTO) 1.4 % (0.0-6.0); HEMATOCRIT 46 % (39-51); HEMOGLOBIN 15.2 g/dL (13.5-17.5); LYMPHOCYTES # (AUTO) 1.2 /CMM (0.8-4.8); LYMPHOCYTES % (AUTO) 15.2 % (20.0-44.0); MEAN CORPUSCULAR HEMOGLOBIN 33 PG (26.0-33.0); MEAN CORPUSCULAR HGB CONC 33 g/dl (31.0-36.0); MEAN CORPUSCULAR VOLUME 101 fL (80-96); MONOCYTES # (AUTO) 0.9 /CMM (0.1-1.30); MONOCYTES % (AUTO) 10.6 % (2.0-12.0); NEUTROPHILS # (AUTO) 5.9 /CMM (1.8-8.9); NEUTROPHILS % (AUTO) 72.7 % (43.0-81.0); PLATELET COUNT (AUTO) 180 /CMM (150-450); RDW COEFFICIENT OF VARIATION 14.1 (11.5-15.0); RED BLOOD CELL COUNT(AUTO) 4.55 MIL/uL (4.5-6.0); WHITE BLOOD COUNT (AUTO) 8.2 K/uL (4.3-11.0)
[2018-02-05 07:09] LABS: CALCIUM, SERUM 9.2 mg/dL (8.5-10.1); CARBON DIOXIDE 32 mmol/L (21-32); CHLORIDE 104 mmol/L (98-107); CREATININE 1.8 mg/dL (0.6-1.3); GLUCOSE 103 mg/dL (74-106); MAGNESIUM 1.7 mg/dL (1.8-2.4); PHOSPHORUS 3.8 mg/dL (2.5-4.9); POTASSIUM 4.4 mmol/L (3.5-5.1); SODIUM SERUM 144 mmol/L (136-145); UREA NITROGEN, BLOOD 33 mg/dL (7-18)
[2018-02-05 08:00] VITALS: BP 116/70
[2018-02-05] MEDS ORDERED: BUMETANIDE INJ 8 MG in IV NS 0.9% 48 ML IV ONE (08:00)
--- NOTE | 2018-02-05 08:00 | NUR ---
RN NOTES RECEIVED PATIENT IN THE BED CLEMENT SPEAKER ON TELE SR-67. PATIENT A/O X3, NO ACUTE RESPIRATORY DISTRESS, NO SOB. V/S TAKEN STABLE. PATIENT WAS C/O PAIN CHEST 0N 3/10BUT REFUSED PAIN MEDICATION, NO COUGHING. SCHEDULED MEDICATION ADMINISTERED. PATIENT USING URINAL. IV ACCESS ON RIGHT FA INTACT SL. PATIENT CONTINENT, CALL LIGHT WITHIN TO REACH. PATIENT TURN AND REPOSTION SELF IN THE BED. SAFETY PRECAUTION MAINTAINED ALL THE TIME.
--- NOTE | 2018-02-05 08:10 | NUR ---
RN NOTES PER DR PADILLA D/C TELE TO MED/SURGE.
[2018-02-05] MEDS: TAMSULOSIN 0.4 MG CAP.SR.24H PO SCH (08:52)
[2018-02-05] MEDS: EZETIMIBE 10 MG TABLET PO SCH (08:52)
[2018-02-05] MEDS: SIMVASTATIN 20 MG TABLET PO SCH (08:52)
[2018-02-05] MEDS: CARVEDILOL 3.125 MG TABLET PO SCH ×2 (08:52→17:00)
[2018-02-05] MEDS: PAROXETINE HCL 20 MG TABLET PO SCH (08:52)
[2018-02-05] MEDS: LOSARTAN POTASSIUM 50 MG TABLET PO SCH (08:53)
[2018-02-05] MEDS ORDERED: METOLAZONE 2.5 MG TABLET PO SCH (09:00)
[2018-02-05] MEDS ORDERED: POTASSIUM CHLORIDE 20 MEQ TAB.PRT.SR PO SCH (09:00)
[2018-02-05] MEDS ORDERED: Magnesium 1GM/D5W 100ML PREMIX 100 ML IV SCH (09:34)
[2018-02-05] MEDS: APIXABAN 5 MG TABLET PO SCH ×2 (09:36→17:44)
[2018-02-05] MEDS: CARBIDOPA/LEVODOPA 10/100 MG 1 UDTAB PO SCH ×2 (09:36→17:44)
[2018-02-05] MEDS: CYANOCOBALAMIN 500 MCG TABLET PO SCH (09:37)
--- NOTE | 2018-02-05 13:00 | NUR ---
RN NOTES PATIENT STABLE, NO ACUTE RESPIRATORY DISTRESS, NO C/O CHEST PAIN, REFUSED SOB. PATIENT RESTING IN THE BED. NEEDS ATTENDED AND ANTICIPATED, CONTINUED MONITORING.
[2018-02-05 16:00] VITALS: BP_SYST 96; BP_DIAS 56; BP_DIAS 77
--- NOTE | 2018-02-05 17:53 | NUR ---
RN NOTES HELD BP MEDICATION BP -96/77, P-73, ADMINISTERED REST OF MEDICATION. PATIENT STABLE. CONTINUED MONITORING.
--- NOTE | 2018-02-05 18:41 | NUR ---
RN NOTES PATIENT STABLE SLEEPING AT THIS TIME. NO ACUTE RESPIRATORY DISTRESS, V/S STABLE, INFUSING NS AT 50ML/HR INTACT ON LEFT HAND. PATIENT ON O2-3LNC. NEEDS ATTENDED AND ANTICIPATED, CALL LIGHT WITHIN TO REACH, ASSIST TURN AND REPOSTION Q 2 HR. SAFETY PRECAUTION MAINTAINED ALL THE TIME. ENDORSED ONCOMING NURSE FOR PLAN OF CARE.
--- NOTE | 2018-02-05 19:10 | NUR ---
MS/RN NOTES RECEIVED PT. LYING IN BED. PT. IS AWAKE, ALERT X3. BREATHING EVEN AND UNLABORED ON 2LPM O2 VIA NC. NO SOB, RESPIRATORY DISTRESS OR COMPLAINTS OF PAIN NOTED AT THIS TIME. PT. WITH RIGHT FOREARM 20 GAUGE IV SALINE LOCK PRESENT, PATENT AND INTACT. PT. WITH FAMILY MEMBERS PRESENT AT BEDSIDE. BED LOCKED AND IN LOWEST POSITION, SIDE RAILS UP X2, BED ALARM ON, CALL LIGHT WITHIN REACH, WILL CONTINUE TO MONITOR.
[2018-02-05 20:56] VITALS: BP 124/76
--- NOTE | 2018-02-06 06:22 | NUR ---
MS/RN NOTES PT. IS LYING IN BED RESTING, BREATHING EVEN AND UNLABORED ON 2LPM O2 VIA NC. NO SOB, RESPIRATORY DISTRESS OR COMPLAINTS OF PAIN NOTED AT THIS TIME. PT. WITH RIGHT FOREARM 20 GAUGE IV SALINE LOCK PRESENT, PATENT AND INTACT. ALL PT. NEEDS MET. BED LOCKED AND IN LOWEST POSITION, SIDE RAILS UP X2, BED ALARM ON, CALL LIGHT WITHIN REACH, WILL ENDORSE TO DAYSHIFT NURSE FOR CONTINUITY OF CARE.
[2018-02-06 06:36] LABS: TROPONIN I 0.066 ng/mL (0.00-0.056)
[2018-02-06 06:45] LABS: ALANINE AMINOTRANSFERASE 14 U/L (12-78); ALBUMIN 3.2 g/dL (3.4-5.0); ALKALINE PHOSPHATASE 89 U/L (46-116); ASPARTATE AMINOTRANSFERASE 19 U/L (15-37); BILIRUBIN,TOTAL 0.6 mg/dL (0.2-1.0); CALCIUM, SERUM 9.2 mg/dL (8.5-10.1); CARBON DIOXIDE 32 mmol/L (21-32); CHLORIDE 101 mmol/L (98-107); CREATININE 2.2 mg/dL (0.6-1.3); GLUCOSE 111 mg/dL (74-106); POTASSIUM 4.1 mmol/L (3.5-5.1); SODIUM SERUM 141 mmol/L (136-145); TOTAL PROTEIN, SERUM 7.6 g/dL (6.4-8.2); UREA NITROGEN, BLOOD 48 mg/dL (7-18)
--- NOTE | 2018-02-06 07:20 | NUR ---
ms rn initial notes Received patient in bed, asleep, head of bed elevated, no SOB or distress noted, on 02 @ 2lpm via NC and tolerated well. IV intact and patent HL only. Alert and oriented x 3, verbally responsive and able to make needs known as endorsed by sow farm manager RN. Call light with in patient reach, will continue to monitor accordingly.
[2018-02-06 08:00] VITALS: BP 122/74
[2018-02-06] MEDS ORDERED: ALBUTEROL FS 2.5 MG/3 ML VIAL.NEB NEB PRN (08:30)
[2018-02-06] MEDS ORDERED: LEVALBUTEROL HCL NEB 1.25 MG/0.5 ML VIAL.NEB IH SCH (08:30)
[2018-02-06] MEDS ORDERED: IPRATROPIUM NEB FS 0.5 MG/2.5 ML AMPUL.NEB NEB PRN (08:30)
[2018-02-06] MEDS: EZETIMIBE 10 MG TABLET PO SCH (08:52)
[2018-02-06] MEDS: TAMSULOSIN 0.4 MG CAP.SR.24H PO SCH (08:53)
[2018-02-06] MEDS: SIMVASTATIN 20 MG TABLET PO SCH (08:53)
[2018-02-06] MEDS: CYANOCOBALAMIN 500 MCG TABLET PO SCH (08:53)
[2018-02-06] MEDS: PAROXETINE HCL 20 MG TABLET PO SCH (08:53)
[2018-02-06] MEDS: CARVEDILOL 3.125 MG TABLET PO SCH ×2 (08:54→16:44)
[2018-02-06] MEDS: LOSARTAN POTASSIUM 50 MG TABLET PO SCH (08:54)
[2018-02-06] MEDS: APIXABAN 5 MG TABLET PO SCH ×2 (08:55→16:44)
[2018-02-06] MEDS: ALBUTEROL FS 2.5 MG/3 ML VIAL.NEB NEB SCH ×3 (09:10→19:41)
[2018-02-06] MEDS: CARBIDOPA/LEVODOPA 10/100 MG 1 UDTAB PO SCH ×2 (11:05→16:44)
[2018-02-06 11:14] LABS: BASOPHILS % (AUTO) 0.3 % (0.0-2.0); EOSINOPHILS % (AUTO) 1.3 % (0.0-6.0); HEMATOCRIT 49 % (39-51); HEMOGLOBIN 15.8 g/dL (13.5-17.5); LYMPHOCYTES # (AUTO) 1.4 /CMM (0.8-4.8); LYMPHOCYTES % (AUTO) 15.8 % (20.0-44.0); MEAN CORPUSCULAR HEMOGLOBIN 33 PG (26.0-33.0); MEAN CORPUSCULAR HGB CONC 33 g/dl (31.0-36.0); MEAN CORPUSCULAR VOLUME 101 fL (80-96); MONOCYTES # (AUTO) 0.9 /CMM (0.1-1.30); MONOCYTES % (AUTO) 10.8 % (2.0-12.0); NEUTROPHILS # (AUTO) 6.3 /CMM (1.8-8.9); NEUTROPHILS % (AUTO) 71.8 % (43.0-81.0); PLATELET COUNT (AUTO) 195 /CMM (150-450); RDW COEFFICIENT OF VARIATION 14.2 (11.5-15.0); RED BLOOD CELL COUNT(AUTO) 4.81 MIL/uL (4.5-6.0); WHITE BLOOD COUNT (AUTO) 8.8 K/uL (4.3-11.0)
[2018-02-06 16:00] VITALS: BP 90/56
--- NOTE | 2018-02-06 17:12 | NUR ---
ms rn notes Held BP med due to bp 90/56. Will continue to monitor.
--- NOTE | 2018-02-06 19:06 | NUR ---
ms rn closing notes All needs provided, attended, and anticipated. Patient in stable condition. Endorsed to next shift RN to continue care. Call light with in patient reach.
--- NOTE | 2018-02-06 19:09 | NUR ---
RN INITIAL NOTES Patient received laying in bed, watching TV, alert, oriented x 3. Breathing even and unlabored. Not in any distress. Patient able to make needs known. Safety ,easures in place. Call farooq within reach. Bed in low, locked position. Patient stable as per morning RN. Will monitor accordingly
[2018-02-06 20:00] VITALS: BP 107/66
[2018-02-06 20:04] VITALS: BP 107/66
--- NOTE | 2018-02-06 20:14 | NUR ---
RN NOTES: SPOKED TO RYAN LARSON PT BEEN C/O CHEST PAIN, NON RADIATING 01/01, PT IS ON BREATHING TREATMENT AT THIS TIME. VS TAKEN AND RECORDED 107/66 60 RR 18 91-92%, BS 100, TROPONIN 0.0667 (0.086 PREVIOUSLY). STAT EKG SHOWS AFIB, RIGHT BUNDLE BRUNCH BLOCK, HR 69, RELAYED ALL RESULT TO GLOVE FORMER STREET SWEEPER, PER GLOVE FORMER MOST LIKELY THE CHEST PAIN WAS AGGRAVATED/EXACERBATED BY BREATHING TREATMENT. PER GLOVE FORMER SHE WILL PUT PT BACK TO TELEMETRY, CONTINUE MONITORING FOR CHEST PAIN, CONTINUE VITAL SIGN MONITORING. RELAYED TO [employer] SALES CONSULTANT.
--- NOTE | 2018-02-06 20:17 | NUR ---
RN NOTES: PT STATED HE FEELS BETTER AFTER BREATHING TREATMENT AND CHEST PAIN WENT WAY. PT REFUSED ANY PAIN MEDICATION. ALL TRANSLATED BY JORGE VAUGHAN RN
--- NOTE | 2018-02-06 20:20 | NUR ---
RN NOTES Patient now on tele, controlled afib 62
[2018-02-07] VITALS: BP 104/74
[2018-02-07] MEDS: ALBUTEROL FS 2.5 MG/3 ML VIAL.NEB NEB SCH ×4 (02:24→19:50)
[2018-02-07 04:00] VITALS: BP 114/75
[2018-02-07 06:57] LABS: CARBON DIOXIDE 32 mmol/L (21-32); CHLORIDE 101 mmol/L (98-107); CREATININE 2.6 mg/dL (0.6-1.3); GLUCOSE 122 mg/dL (74-106); POTASSIUM 4.2 mmol/L (3.5-5.1); SODIUM SERUM 142 mmol/L (136-145); UREA NITROGEN, BLOOD 60 mg/dL (7-18)
--- NOTE | 2018-02-07 07:14 | NUR ---
RN CLOSING NOTES Patient in bed, sleeping but easily arousable. Breathing even and unlabored. Not in any distress. No complaints of chest pain. On tele monitor, controlled afib 66. No complaints as of this time. All needs attended to. All medications given as ordered. Endorsed MOHAMUD to AM shift RN.
--- NOTE | 2018-02-07 07:20 | NUR ---
television writer initial notes Received patient in bed, asleep, head of bed elevated, no SOB or distress noted, on 02 @ 2lpm via NC, 02 sat of 97%. Patient is alert and oriented x 3, verbally responsive and able to make needs known. On tele monitor A-fib controlled heart rate of 64. IV intact and patent HL only. No facial grimace noted. Call light with in patient reach, will continue to monitor accordingly.
[2018-02-07 07:31] LABS: BASOPHILS % (AUTO) 0.2 % (0.0-2.0); EOSINOPHILS % (AUTO) 0.8 % (0.0-6.0); HEMATOCRIT 50 % (39-51); HEMOGLOBIN 15.5 g/dL (13.5-17.5); LYMPHOCYTES # (AUTO) 1.4 /CMM (0.8-4.8); LYMPHOCYTES % (AUTO) 17.5 % (20.0-44.0); MEAN CORPUSCULAR HEMOGLOBIN 32 PG (26.0-33.0); MEAN CORPUSCULAR HGB CONC 31 g/dl (31.0-36.0); MEAN CORPUSCULAR VOLUME 101 fL (80-96); MONOCYTES # (AUTO) 0.8 /CMM (0.1-1.30); MONOCYTES % (AUTO) 10.1 % (2.0-12.0); NEUTROPHILS # (AUTO) 5.6 /CMM (1.8-8.9); NEUTROPHILS % (AUTO) 71.4 % (43.0-81.0); PLATELET COUNT (AUTO) 217 /CMM (150-450); RDW COEFFICIENT OF VARIATION 14.5 (11.5-15.0); RED BLOOD CELL COUNT(AUTO) 4.93 MIL/uL (4.5-6.0); WHITE BLOOD COUNT (AUTO) 7.8 K/uL (4.3-11.0)
[2018-02-07 07:46] LABS: CALCIUM, SERUM 8.9 mg/dL (8.5-10.1)
[2018-02-07 08:00] VITALS: BP 131/60
[2018-02-07] MEDS: CARBIDOPA/LEVODOPA 10/100 MG 1 UDTAB PO SCH ×2 (08:56→16:28)
[2018-02-07] MEDS: APIXABAN 5 MG TABLET PO SCH ×2 (08:56→16:29)
[2018-02-07] MEDS: CYANOCOBALAMIN 500 MCG TABLET PO SCH (08:57)
[2018-02-07] MEDS: EZETIMIBE 10 MG TABLET PO SCH (08:57)
[2018-02-07] MEDS: SIMVASTATIN 20 MG TABLET PO SCH (08:57)
[2018-02-07] MEDS: CARVEDILOL 3.125 MG TABLET PO SCH ×2 (08:57→16:34)
[2018-02-07] MEDS: PAROXETINE HCL 20 MG TABLET PO SCH (08:57)
[2018-02-07] MEDS: TAMSULOSIN 0.4 MG CAP.SR.24H PO SCH (08:57)
[2018-02-07] MEDS ORDERED: IV NS 0.9% 1,000 ML BAG IV SCH (09:00)
--- NOTE | 2018-02-07 14:00 | NUR ---
PT REFUSED RESP TX AT THIS TIME. NO S/S OF SOB NOTED. WILL CONT TO MONITOR PT Addendum: 02/07/18 at 1401 by CHANEL CARRILLO RT Amended: Links added.
[2018-02-07 16:00] VITALS: BP 102/59
--- NOTE | 2018-02-07 19:02 | NUR ---
ms rn closing notes All needs provided, attended, and anticipated. patient in stable condition. Endorsed to next shift RN to continue care. Call light with in patient reach.
--- NOTE | 2018-02-07 19:08 | NUR ---
RN INITIAL NOTES Patient received in bed, alert, oriented x 4. Breathing even and unlabored. Not in any distress. Peripheral IV on RFA infusing at 75mL/hr, intact and patent. No complaints of discomfort as of this time. Patient stable as per the morning RN. Will continue to monitor accordingly
[2018-02-07 20:00] VITALS: BP 133/77
[2018-02-07] MEDS: IV NS 0.9% 1,000 ML IV PRN (22:41)
[2018-02-08] MEDS: ALBUTEROL FS 2.5 MG/3 ML VIAL.NEB NEB SCH ×4 (01:19→19:44)
--- NOTE | 2018-02-08 07:15 | NUR ---
ms rn initial notes Received patient in bed, asleep, head of bed elevated, no SOB or distress noted. On room air and tolerated well. IV intact and patent with IVF infusing well. No facial grimace noted. Call light with in patient reach, will continue to monitor accordingly.
[2018-02-08 07:19] LABS: CALCIUM, SERUM 8.9 mg/dL (8.5-10.1); CARBON DIOXIDE 31 mmol/L (21-32); CHLORIDE 105 mmol/L (98-107); CREATININE 2.2 mg/dL (0.6-1.3); GLUCOSE 113 mg/dL (74-106); POTASSIUM 4.1 mmol/L (3.5-5.1); SODIUM SERUM 143 mmol/L (136-145); UREA NITROGEN, BLOOD 60 mg/dL (7-18)
--- NOTE | 2018-02-08 07:31 | NUR ---
RN CLOSING NOTES Patient in bed, sleeping but easily arousable. Breathing even and unlabored. Not in any distress. No complaints of chest pain throughout the shift. Peripheral IV infusing at 75mL/hr. All needs attended to. Endorsed MOHAMUD to AM shift RN.
[2018-02-08 07:54] LABS: BASOPHILS % (AUTO) 0.1 % (0.0-2.0); EOSINOPHILS % (AUTO) 1.4 % (0.0-6.0); HEMATOCRIT 45 % (39-51); LYMPHOCYTES # (AUTO) 1.3 /CMM (0.8-4.8); LYMPHOCYTES % (AUTO) 17.2 % (20.0-44.0); MEAN CORPUSCULAR HEMOGLOBIN 33 PG (26.0-33.0); MEAN CORPUSCULAR HGB CONC 33 g/dl (31.0-36.0); MEAN CORPUSCULAR VOLUME 98 fL (80-96); MONOCYTES # (AUTO) 0.8 /CMM (0.1-1.30); MONOCYTES % (AUTO) 11.1 % (2.0-12.0); NEUTROPHILS # (AUTO) 5.1 /CMM (1.8-8.9); NEUTROPHILS % (AUTO) 70.2 % (43.0-81.0); PLATELET COUNT (AUTO) 166 /CMM (150-450); RDW COEFFICIENT OF VARIATION 13.1 (11.5-15.0); RED BLOOD CELL COUNT(AUTO) 4.59 MIL/uL (4.5-6.0); WHITE BLOOD COUNT (AUTO) 7.3 K/uL (4.3-11.0)
[2018-02-08 08:00] VITALS: BP 122/63
[2018-02-08] MEDS: APIXABAN 5 MG TABLET PO SCH ×2 (08:34→16:50)
[2018-02-08] MEDS: CARBIDOPA/LEVODOPA 10/100 MG 1 UDTAB PO SCH ×2 (08:35→16:50)
[2018-02-08] MEDS: EZETIMIBE 10 MG TABLET PO SCH (08:35)
[2018-02-08] MEDS: TAMSULOSIN 0.4 MG CAP.SR.24H PO SCH (08:35)
[2018-02-08] MEDS: PAROXETINE HCL 20 MG TABLET PO SCH (08:35)
[2018-02-08] MEDS: CYANOCOBALAMIN 500 MCG TABLET PO SCH (08:35)
[2018-02-08] MEDS: SIMVASTATIN 20 MG TABLET PO SCH (08:35)
[2018-02-08] MEDS: CARVEDILOL 3.125 MG TABLET PO SCH ×2 (08:36→16:52)
[2018-02-08 16:00] VITALS: BP 132/71
--- NOTE | 2018-02-08 19:16 | NUR ---
ms rn closing notes All needs provided, attended, and anticipated. Patient in stable condition at this time. Endorsed to next shift RN to continue care. Call light with in patient reach.
--- NOTE | 2018-02-08 19:30 | NUR ---
MSRN FULLY AWAKE, RESTING QUIETLY. PRESENT IVF INFUSING WELL. NO SOB, NO OTHER DISCOMFORTS MADE. CALL LIGHT USE REVIEWED WITH PATIENT WELL UNDERSTOOD. SAFETY PRECAUTIONS EMPHASIZED.
[2018-02-08 20:00] VITALS: BP 113/74
--- NOTE | 2018-02-08 23:00 | NUR ---
MSRN AWAKENED, NO NEEDS MADE. URINAL AT BEDSIDE.
[2018-02-09] MEDS: ALBUTEROL FS 2.5 MG/3 ML VIAL.NEB NEB SCH ×3 (01:52→14:17)
--- NOTE | 2018-02-09 03:40 | NUR ---
MSRN SLEEPING APPEARS COMFORTABLE, CLOSELY WATCHED
--- NOTE | 2018-02-09 06:45 | NUR ---
MSRN REMAINS UNCHANGED, IVF CONTINUED.
[2018-02-09 06:49] LABS: CALCIUM, SERUM 8.9 mg/dL (8.5-10.1); CARBON DIOXIDE 31 mmol/L (21-32); CHLORIDE 106 mmol/L (98-107); GLUCOSE 106 mg/dL (74-106); POTASSIUM 4.3 mmol/L (3.5-5.1); SODIUM SERUM 145 mmol/L (136-145); UREA NITROGEN, BLOOD 49 mg/dL (7-18)
--- NOTE | 2018-02-09 07:20 | NUR ---
ms rn initial notes Received patient in bed, asleep, head of bed elevated, no SOB or distress noted, on room air and tolerated well. IV intact and patent with IVF infusing well. Alert and oriented x 3, armenain speaking. Call light with in patient reach, will continue to monitor accordingly.
[2018-02-09 07:41] LABS: EOSINOPHILS % (AUTO) 1.6 % (0.0-6.0); HEMATOCRIT 42 % (39-51); HEMOGLOBIN 14.6 g/dL (13.5-17.5); LYMPHOCYTES % (AUTO) 15.7 % (20.0-44.0); MEAN CORPUSCULAR HEMOGLOBIN 34 PG (26.0-33.0); MEAN CORPUSCULAR HGB CONC 35 g/dl (31.0-36.0); MEAN CORPUSCULAR VOLUME 99 fL (80-96); MONOCYTES % (AUTO) 12.8 % (2.0-12.0); NEUTROPHILS % (AUTO) 69.4 % (43.0-81.0); PLATELET COUNT (AUTO) 164 /CMM (150-450); RDW COEFFICIENT OF VARIATION 13.5 (11.5-15.0); RED BLOOD CELL COUNT(AUTO) 4.28 MIL/uL (4.5-6.0); WHITE BLOOD COUNT (AUTO) 7.6 K/uL (4.3-11.0)
[2018-02-09 07:42] LABS: BASOPHILS % (AUTO) 0.5 % (0.0-2.0)
[2018-02-09 08:00] VITALS: BP 120/67
[2018-02-09] MEDS: APIXABAN 5 MG TABLET PO SCH (08:32)
[2018-02-09] MEDS: TAMSULOSIN 0.4 MG CAP.SR.24H PO SCH (08:33)
[2018-02-09] MEDS: CARBIDOPA/LEVODOPA 10/100 MG 1 UDTAB PO SCH (08:33)
[2018-02-09] MEDS: EZETIMIBE 10 MG TABLET PO SCH (08:33)
[2018-02-09] MEDS: PAROXETINE HCL 20 MG TABLET PO SCH (08:33)
[2018-02-09] MEDS: SIMVASTATIN 20 MG TABLET PO SCH (08:33)
[2018-02-09] MEDS: CYANOCOBALAMIN 500 MCG TABLET PO SCH (08:33)
[2018-02-09 08:34] VITALS: BP 120/67
[2018-02-09] MEDS: CARVEDILOL 3.125 MG TABLET PO SCH (08:34)
[2018-02-09] MEDS: IV NS 0.9% 1,000 ML IV PRN (08:37)
--- NOTE | 2018-02-09 16:00 | NUR ---
ms bottom turning lathe tender notes Discharge instructions given to daughter and able to understand instructions. Signed discharge paper and belonging list, prescription given. Skin intact. Informed to follow up with primary health care physician n 1-2 weeks and amenable. No complaint of pain or discomfort noted, nor chest pain. Patient left via wheelchair accompanied by daughter Luisa and RN assigned in stable condition. PNA and flu vaccine refused. Explained the benefits and still refused. Vital signs checked and recorded. MD and charge nurse aware.
== END 2018-02-09 16:04 | disposition home health service (06) | DRG 280 ==
LOC: ER 11:01 → TELE 12:27 → MED 02-05 08:04 → TELE 02-06 22:29 → MED 02-07 08:54
DX: I13.0 Hypertensive heart and chronic kidney disease with heart failure and stage 1 through stage 4 chronic kidney disease, or unspecified chronic kidney disease (principal); I21.A1 Myocardial infarction type 2; I50.23 Acute on chronic systolic (congestive) heart failure; N17.9 Acute kidney failure, unspecified; E44.1 Mild protein-calorie malnutrition; N18.9 Chronic kidney disease, unspecified; G20 Parkinson's disease; M10.9 Gout, unspecified; I25.10 Atherosclerotic heart disease of native coronary artery without angina pectoris; Z95.1 Presence of aortocoronary bypass graft; Z68.32 Body mass index [BMI] 32.0-32.9, adult; Z79.01 Long term (current) use of anticoagulants; Z95.810 Presence of automatic (implantable) cardiac defibrillator; E78.5 Hyperlipidemia, unspecified; N40.0 Benign prostatic hyperplasia without lower urinary tract symptoms; F17.210 Nicotine dependence, cigarettes, uncomplicated; I25.2 Old myocardial infarction; I48.91 Unspecified atrial fibrillation; F03.90 Unspecified dementia, unspecified severity, without behavioral disturbance, psychotic disturbance, mood disturbance, and anxiety; K21.9 Gastro-esophageal reflux disease without esophagitis; E66.9 Obesity, unspecified
CPT/HCPCS: 36415; 71045-TC; 80048-TC; 80053-TC; 80076-TC; 82962-TC; 83690-TC; 83735-TC; 83880; 84100-TC; 84484-TC; 85025-TC; 85730-TC; 87081-TC; A4216; A4606; J1940; J3475; J3490; J7030; Z7610

== ENCOUNTER 2018-12-07 13:14 | Inpatient (IN) | payer MEDICARE, OTHER ==
[~2018-12-07] VITALS: Ht 175.3 cm; Wt 89.8 kg
[~2018-12-07 13:14] MED LIST changes: +APIX5TAB PO; -ASPI-1169 PO; -BUDE10.2 IH; -DOCU-141 PO; -DUTA0.5C PO; +EZET10TA14 PO; +FURO-144 PO; -FURO40TA5 PO; +INDO25CA18 PO; +LOSA50TA39 PO; +METO2.5T2 PO; +TAMS-12 PO; -VITA1TAB56 PO
--- NOTE | 2018-12-07 13:16 | NUR ---
PT BIBRA FROM HOME FOR WORSENING SOB; PT WAS AT PMD OFFICE, WENT HOME AND CALLED 911; PT AAOX4, NAD NOTED, VSS, PT ON MONITOR, MD AT BEDSIDE FOREVAL
[2018-12-07] MEDS ORDERED: ALBUTEROL FS 2.5 MG/3 ML VIAL.NEB ONE (13:24)
[2018-12-07] MEDS ORDERED: IPRATROPIUM NEB FS 0.5 MG/2.5 ML AMPUL.NEB ONE (13:24)
[2018-12-07] MEDS ORDERED: methylPREDNISolone SOD SUCC 125 MG/2ML VIAL ONE (13:27)
[2018-12-07] MEDS ORDERED: methylPREDNISolone SOD SUCC 125 MG/2ML VIAL IV ONE (13:30)
[2018-12-07] MEDS ORDERED: IPRATROPIUM NEB FS 0.5 MG/2.5 ML AMPUL.NEB NEB ONE (13:30)
[2018-12-07] MEDS ORDERED: ALBUTEROL FS 2.5 MG/3 ML VIAL.NEB NEB ONE (13:30)
[2018-12-07 13:33] LABS: BASOPHILS % (AUTO) 0.5 % (0.0-2.0); EOSINOPHILS % (AUTO) 1.9 % (0.0-6.0); HEMATOCRIT 43 % (39-51); HEMOGLOBIN 14.4 g/dL (13.5-17.5); LYMPHOCYTES # (AUTO) 1.3 /CMM (0.8-4.8); LYMPHOCYTES % (AUTO) 17.5 % (20.0-44.0); MEAN CORPUSCULAR HGB CONC 34 g/dl (31.0-36.0); MEAN CORPUSCULAR VOLUME 100 fL (80-96); MONOCYTES # (AUTO) 0.8 /CMM (0.1-1.30); NEUTROPHILS # (AUTO) 5.3 /CMM (1.8-8.9); NEUTROPHILS % (AUTO) 70.1 % (43.0-81.0); PLATELET COUNT (AUTO) 195 /CMM (150-450); WHITE BLOOD COUNT (AUTO) 7.5 K/uL (4.3-11.0)
[2018-12-07 13:41] LABS: CALCIUM, SERUM 9.1 mg/dL (8.5-10.1); CARBON DIOXIDE 29 mmol/L (21-32); CHLORIDE 107 mmol/L (98-107); GLUCOSE 121 mg/dL (74-106); SODIUM SERUM 143 mmol/L (136-145); UREA NITROGEN, BLOOD 44 mg/dL (7-18)
[2018-12-07 13:54] LABS: ALANINE AMINOTRANSFERASE 21 U/L (12-78); ALBUMIN 3.1 g/dL (3.4-5.0); ALKALINE PHOSPHATASE 95 U/L (46-116); ASPARTATE AMINOTRANSFERASE 14 U/L (15-37); B-TYPE NATRIURETIC PEPTIDE 4538 PG/ML (0-125); BILIRUBIN,DIRECT 0.1 mg/dL (0.0-0.2); BILIRUBIN,TOTAL 0.5 mg/dL (0.2-1.0); TOTAL PROTEIN, SERUM 6.8 g/dL (6.4-8.2)
[2018-12-07] MEDS ORDERED: FUROSEMIDE 40 MG/4 ML VIAL IV STA (14:20)
[2018-12-07] MEDS ORDERED: FUROSEMIDE 20 MG/2 ML VIAL ONE (14:42)
[2018-12-07] MEDS ORDERED: FUROSEMIDE 40 MG/4 ML VIAL ONE (14:42)
--- NOTE | 2018-12-07 15:55 | NUR ---
[facility]AC[facility] @[id number]
[2018-12-07] MEDS ORDERED: BUDE10.2 IH (16:19)
[2018-12-07] MEDS ORDERED: DUTA0.5C PO (16:19)
--- NOTE | 2018-12-07 16:20 | NUR ---
REPORT GIVEN TO AMY FROST FOR MOHAMUD; PT WILL BE TRANSPORTED TO 1ST FLOOR VIA [facility] PROTOCOL
--- NOTE | 2018-12-07 16:23 | NUR ---
TELE1/RN REPORT FROM ER REPORT GIVEN BY ER NURSE NICOLASA FOR PT TO BE ADMITTED FOR CHF, UNDER THE CARE OF DR. PICKARD. AWAITING FOR PT'S ARRIVAL.
[2018-12-07 16:30] VITALS: BP 106/74
[2018-12-07] MEDS ORDERED: HYDROCODONE/APAP 5/325MG 1 EACH TABLET PO PRN (16:30)
[2018-12-07] MEDS ORDERED: ONDANSETRON HCL/PF 4 MG/2 ML VIAL IVP PRN (16:30)
[2018-12-07] MEDS ORDERED: MAGNESIUM HYDROXIDE 30 ML UDC PO PRN (16:30)
[2018-12-07] MEDS ORDERED: ACETAMINOPHEN 325 MG TABLET PO PRN (16:30)
[2018-12-07] MEDS ORDERED: MAG HYDROX/AL HYDROX/SIMETH 30 ML UDC PO PRN (16:30)
[2018-12-07] MEDS ORDERED: Z GUARD REMEDY 2 OZ OINT TP PRN (16:30)
[2018-12-07] MEDS ORDERED: ZOLPIDEM TARTRATE 5 MG TABLET PO PRN (16:30)
[2018-12-07] MEDS ORDERED: NITROGLYCERIN 0.4 MG/TAB BOTTLE SL PRN (16:30)
--- NOTE | 2018-12-07 17:20 | NUR ---
TELE1/RN ROUNDS - DR. HOUSTON PT SEEN & EXAMINED BY DR. HOUSTON, SPOKE TO DAUGHTER AT BEDSIDE, NO NEW ORDER RECIVED AT THIS TIME.
[2018-12-07] MEDS: FUROSEMIDE 40 MG/4 ML VIAL IV SCH (17:45)
[2018-12-07] MEDS: CARVEDILOL 3.125 MG TABLET PO SCH (17:46)
[2018-12-07] MEDS: APIXABAN 5 MG TABLET PO SCH (17:47)
--- NOTE | 2018-12-07 19:17 | NUR ---
INITIAL ECHO RESULTS SHOWED EF 25-30%~. ADVISED ATTENDING RN AND DR. HOUSTON OF PRELIMINARY FINDINGS.
--- NOTE | 2018-12-07 19:31 | NUR ---
TELE1/RN AM SHIFT END NOTES NO ACUTE CHANGE OF CONDITION NOTED SINCE PT WAS ADMITTED THIS AFTERNOON, ALL NEEDS MET. PT IS RESTING COMFORTABLY WITH FAMILY MEMBERS AT BEDSIDE. PT ENDORSED TO PM NURSE TO CONTINUE CARE. CL WITHIN REACHED AND SAFETY MAINTAINED.
[2018-12-07 20:00] VITALS: BP 166/85
--- NOTE | 2018-12-07 20:00 | NUR ---
PIPE THREADING MACHINE OPERATOR NOTE PT IN BED ASLEEP, AROUSABLE. A/O X 4, MALAWIAN SPEAKING. NO SOB, NO DISTRESS OR DISCOMFORT NOTED. DENIES PAIN. RAC SL #20 G INTACT AND PATENT. ON TELE MONITOR V PACING HR 68. SIDE RAILS UP X 2 AND CALL LIGHT WITHIN REACH. VSS. CONTINUE TO MONITOR HIM.
[2018-12-08] VITALS: BP 155/80
[2018-12-08] MEDS: FUROSEMIDE 40 MG/4 ML VIAL IV SCH ×2 (00:41→06:15)
[2018-12-08 04:00] VITALS: BP 150/84
--- NOTE | 2018-12-08 06:41 | NUR ---
MS RN NOTE PT IN BED AWAKE, NO DISTRESS OR DISCOMFORT NOTED. DENIES PAIN. ALL NEEDS ATTENDED. SIDE RAILS UP X 2 AND CALL LIGHT WITHIN REACH. VSS. ON TELE MONITOR V PACING HR 63. WILL ENDORSE TO DAY SHIFT NURSE FOR CONTINUE TO CARE.
[2018-12-08 06:43] LABS: BASOPHILS % (AUTO) 0.1 % (0.0-2.0); EOSINOPHILS % (AUTO) 0.1 % (0.0-6.0); HEMATOCRIT 44 % (39-51); HEMOGLOBIN 15.2 g/dL (13.5-17.5); LYMPHOCYTES # (AUTO) 0.5 /CMM (0.8-4.8); LYMPHOCYTES % (AUTO) 6.2 % (20.0-44.0); MEAN CORPUSCULAR HGB CONC 35 g/dl (31.0-36.0); MEAN CORPUSCULAR VOLUME 99 fL (80-96); MONOCYTES # (AUTO) 0.1 /CMM (0.1-1.30); NEUTROPHILS # (AUTO) 7.6 /CMM (1.8-8.9); NEUTROPHILS % (AUTO) 92.6 % (43.0-81.0); PLATELET COUNT (AUTO) 181 /CMM (150-450); RED BLOOD CELL COUNT(AUTO) 4.49 MIL/uL (4.5-6.0); WHITE BLOOD COUNT (AUTO) 8.2 K/uL (4.3-11.0)
[2018-12-08 07:03] LABS: CHOLESTEROL 153 mg/dL (<200); HDL CHOLESTEROL 42 mg/dL (40-60); LDL 104 mg/dL (0-99); THYROID STIMULATING HORMONE 0.338 uIU/mL (0.358-3.74); TRIGLYCERIDES 54 mg/dL (30-150)
--- NOTE | 2018-12-08 07:05 | NUR ---
ENTERPRISE SYSTEMS ENGINEER OPENING NOTES RECEIVED PT LYING ON BED IN SEMI FOWLERS POSITION.ALERT/ORIENTED X4 WITH AMHARIC SPEAKING PT.ON TELE HR IS 68 WITH SR.ON NC 2 L O2 CONTINUOUSLY,NO SOB AND ACUTE DISTRESS NOTED.IV LINE IS ON RIGHT AC G20,AL.SITE IS CLEAN,DRY AND INTACT.NO INFILTRATION NOTED.BED IS IN LOW POSITION AND LOCKED,CALL LIGHT IS WITHIN REACH.WILL CONTINUE TO MONITOR THE PT CLOSELY.
--- NOTE | 2018-12-08 07:05 | NUR ---
POLITICAL ANTHROPOLOGIST OPENING NOTES RECEIVED PT LYING ON BED IN SEMI FOWLERS POSITION.ALERT/ORIENTED X4 WITH SWEDISH SPEAKING PT.ON TELE HR IS 68 WITH SR.ON NC 2 L O2 CONTINUOUSLY,NO SOB AND ACUTE DISTRESS NOTED.IV LINE IS ON RIGHT AC G20,AL.SITE IS CLEAN,DRY AND INTACT.NO INFILTRATION NOTED.BED IS IN LOW POSITION AND LOCKED,CALL LIGHT IS WITHIN REACH.WILL CONTINUE TO MONITOR THE PT CLOSELY.
[2018-12-08 07:11] LABS: B-TYPE NATRIURETIC PEPTIDE 9584 PG/ML (0-125); CARBON DIOXIDE 28 mmol/L (21-32); CHLORIDE 105 mmol/L (98-107); CREATININE 2.4 mg/dL (0.6-1.3); GLUCOSE 147 mg/dL (74-106); MAGNESIUM 1.9 mg/dL (1.8-2.4); PHOSPHORUS 3.7 mg/dL (2.5-4.9); SODIUM SERUM 143 mmol/L (136-145); UREA NITROGEN, BLOOD 46 mg/dL (7-18)
[2018-12-08 08:00] VITALS: BP 120/73
[2018-12-08] MEDS: DUTASTERIDE (0.5 MG) 0.5 MG CAPSULE PO SCH (08:47)
[2018-12-08] MEDS: CYANOCOBALAMIN 500 MCG TABLET PO SCH (08:47)
[2018-12-08] MEDS: CARVEDILOL 3.125 MG TABLET PO SCH ×2 (08:48→16:28)
[2018-12-08] MEDS: LOSARTAN POTASSIUM 50 MG TABLET PO SCH (08:48)
[2018-12-08] MEDS: SIMVASTATIN 20 MG TABLET PO SCH (08:48)
[2018-12-08] MEDS: PAROXETINE HCL 20 MG TABLET PO SCH (08:48)
[2018-12-08] MEDS: EZETIMIBE 10 MG TABLET PO SCH (08:48)
[2018-12-08] MEDS: ALLOPURINOL 100 MG TABLET PO SCH (08:48)
[2018-12-08] MEDS: TAMSULOSIN 0.4 MG CAP.SR.24H PO SCH (08:48)
[2018-12-08] MEDS: APIXABAN 5 MG TABLET PO SCH ×2 (08:49→16:24)
[2018-12-08] MEDS: FLUTICASONE/VILANTEROL 1 EACH BLST.W.DEV IH SCH (08:49)
--- NOTE | 2018-12-08 08:49 | NUR ---
HOOKMAN NOTES ELIQUIS 5MG PO FOR S/P CABG IS GIVEN NOTED.PLATELET IS 181.NO ACTIVE BLEEDING NOTED,PT TOLERATED WELL.MARGOT RUSSELL VERIFIED THE MEDICINE WITH ME.
[2018-12-08] MEDS: FUROSEMIDE 100 MG/10 ML VIAL IV SCH ×3 (10:13→18:18)
[2018-12-08] MEDS: METOLAZONE 2.5 MG TABLET PO SCH (10:14)
[2018-12-08 12:00] VITALS: BP 108/70
[2018-12-08 16:00] VITALS: BP_SYST 104; BP_SYST 85; BP_DIAS 48; BP_DIAS 59
--- NOTE | 2018-12-08 18:52 | NUR ---
REAL ESTATE SALES MANAGER CLOSING NOTES PT IS LYING ON BED.ALERT/ORIENTED X2.ON TELE HR IS 67 WITH V PACING,RESPIRATION UIS EVEN AND NONLABORED.ALL DUE MEDS ARE GIVEN.ENDORSED TO CARVER HAND RN FOR MOHAMUD.
[2018-12-08 20:00] VITALS: BP 136/72
[2018-12-09] VITALS: BP 93/71
[2018-12-09 04:00] VITALS: BP 89/59
[2018-12-09 06:53] LABS: BASOPHILS % (AUTO) 0.1 % (0.0-2.0); EOSINOPHILS % (AUTO) 0.1 % (0.0-6.0); HEMATOCRIT 47 % (39-51); HEMOGLOBIN 15.7 g/dL (13.5-17.5); LYMPHOCYTES # (AUTO) 1.4 /CMM (0.8-4.8); LYMPHOCYTES % (AUTO) 11.2 % (20.0-44.0); MEAN CORPUSCULAR HGB CONC 34 g/dl (31.0-36.0); MEAN CORPUSCULAR VOLUME 98 fL (80-96); MONOCYTES # (AUTO) 0.9 /CMM (0.1-1.30); MONOCYTES % (AUTO) 7.3 % (2.0-12.0); NEUTROPHILS # (AUTO) 10.4 /CMM (1.8-8.9); NEUTROPHILS % (AUTO) 81.3 % (43.0-81.0); PLATELET COUNT (AUTO) 202 /CMM (150-450); RED BLOOD CELL COUNT(AUTO) 4.73 MIL/uL (4.5-6.0); WHITE BLOOD COUNT (AUTO) 12.8 K/uL (4.3-11.0)
[2018-12-09 07:11] LABS: ALANINE AMINOTRANSFERASE 19 U/L (12-78); ALBUMIN 3.5 g/dL (3.4-5.0); ALKALINE PHOSPHATASE 93 U/L (46-116); ASPARTATE AMINOTRANSFERASE 13 U/L (15-37); BILIRUBIN,TOTAL 0.5 mg/dL (0.2-1.0); CALCIUM, SERUM 9.1 mg/dL (8.5-10.1); CARBON DIOXIDE 32 mmol/L (21-32); CHLORIDE 100 mmol/L (98-107); CREATININE 2.4 mg/dL (0.6-1.3); GLUCOSE 100 mg/dL (74-106); PHOSPHORUS 4.3 mg/dL (2.5-4.9); POTASSIUM 4.3 mmol/L (3.5-5.1); SODIUM SERUM 139 mmol/L (136-145); TOTAL PROTEIN, SERUM 7.6 g/dL (6.4-8.2); UREA NITROGEN, BLOOD 61 mg/dL (7-18)
--- NOTE | 2018-12-09 07:48 | NUR ---
JEWELRY INSPECTOR OPENING NOTES RECEIVED PT LYING ON BED SLEEPING, REPORTED A/O X4. NO SOB OR ACUTE DISTRESS NOTED. PT.ON TELE HR IS 68 WITH SR. 02 VIA NC @ 2 LITERS. R HAND #20 IV INTACT AND PATENT. NO INFILTRATION NOTED.BED IS IN LOW POSITION AND LOCKED,CALL LIGHT IS WITHIN REACH. WILL CONTINUE TO MONITOR.
[2018-12-09 08:00] VITALS: BP 128/68
[2018-12-09] MEDS: CARVEDILOL 3.125 MG TABLET PO SCH ×2 (09:20→17:23)
[2018-12-09] MEDS: EZETIMIBE 10 MG TABLET PO SCH (09:20)
[2018-12-09] MEDS: PAROXETINE HCL 20 MG TABLET PO SCH (09:20)
[2018-12-09] MEDS: METOLAZONE 2.5 MG TABLET PO SCH (09:20)
[2018-12-09] MEDS: SIMVASTATIN 20 MG TABLET PO SCH (09:21)
[2018-12-09] MEDS: ALLOPURINOL 100 MG TABLET PO SCH (09:21)
[2018-12-09] MEDS: DUTASTERIDE (0.5 MG) 0.5 MG CAPSULE PO SCH (09:21)
[2018-12-09] MEDS: TAMSULOSIN 0.4 MG CAP.SR.24H PO SCH (09:21)
[2018-12-09] MEDS: CYANOCOBALAMIN 500 MCG TABLET PO SCH (09:21)
[2018-12-09] MEDS: LOSARTAN POTASSIUM 50 MG TABLET PO SCH (09:21)
[2018-12-09] MEDS: APIXABAN 5 MG TABLET PO SCH ×2 (09:22→17:23)
[2018-12-09] MEDS: FLUTICASONE/VILANTEROL 1 EACH BLST.W.DEV IH SCH (09:23)
[2018-12-09] MEDS: FUROSEMIDE 40 MG TABLET PO SCH (11:39)
[2018-12-09 16:00] VITALS: BP 130/66
--- NOTE | 2018-12-09 19:19 | NUR ---
DISCIPLINARY HEARING OFFICER CLOSING NOTES PT LYING ON BED SLEEPING, A/O X4, IRANIAN SPEAKING. NO SOB OR ACUTE DISTRESS NOTED. ON 02 VIA NC @ 2 LITERS. R HAND #20 IV INTACT AND PATENT. NO INFILTRATION NOTED. URINE SAMPLE COLLECTED AND SENT TO LAB. FAMILY AT BEDSIDE. SAFETY MEASURES IN PLACE. BED IS IN LOW POSITION AND LOCKED,CALL LIGHT IS WITHIN REACH. CARE ENDORSED TO PUMP AND STILL OPERATOR RN.
[2018-12-09 19:22] LABS: APPEARANCE,URINE CLEAR (CLEAR); BILIRUBIN,URINE NEGATIVE (NEGATIVE); BLOOD, URINE NEGATIVE Ery/uL (NEGATIVE); COLOR,URINE YELLOW (YELLOW); KETONES,URINE NEGATIVE (NEGATIVE); LEUKOCYTE ESTERASE ,URINE NEGATIVE (NEGATIVE); NITRITE, URINE NEGATIVE (NEGATIVE); PROTEIN,URINE NEGATIVE (NEGATIVE); UGLUCOSE NEGATIVE (NEGATIVE); UROBILINOGEN,URINE 0.2 EU/dL (0.2)
--- NOTE | 2018-12-09 19:26 | NUR ---
MS RN RECEIVE PT IN BED A/O X 3, STABLE, RESPIRATIONS EVEN AND UNLABORED, SAFETY MEASURES IN PLACE. WILL CONTINUE TO MONITOR
[2018-12-09 19:29] LABS: CREATININE, URINE 40.9 MG/DL (30.0-125.0); URINE TOTAL PROTEIN 4.1 mg/dL (0-11.9)
--- NOTE | 2018-12-09 19:34 | NUR ---
Patient is alert,his primary dialect is Albanian. Spoke with daughter Luisa,patient lives at home with spouse. He ambulates with a cane and requires supervision with bathing. He is currently on service with homehealth, daughter will bring in the name of the [facility] agency and contact. He receives 110hrs of IHSS and has good family support. He plan to return home once discharge. Family will provide ride. Addendum: 12/09/18 at 1934 by TAHMINA CONTRERAS RN Amended: Links added.
[2018-12-09 19:45] LABS: EOSINOPHIL,URINE None Seen
[2018-12-09 20:00] VITALS: BP 121/61
[2018-12-10 04:00] VITALS: BP 97/62
--- NOTE | 2018-12-10 06:18 | NUR ---
MS RN ASLEEP AND EASILY AWAKEN, RESPIRATIONS EVEN AND UNLABORED. STABLE, SLEPT WELL THROUGHOUT THE NIGHT. KEPT CLEAN AND DRY AND COMFORTABLE. NEEDS ATTENDED AND ANTICIPATED. NURSING CARE RENDERED, NO COMPLAIN OF CHEST PAIN. SAFETY MEASURES AT ALL TIMES. ENDORSE TO THE NEXT SHIFT.
--- NOTE | 2018-12-10 07:10 | NUR ---
RN OPENING NOTES ASLEEP AND EASILY AWAKEN, RESPIRATIONS EVEN AND UNLABORED. STABLE, SLEEPING WELL REPORTED BY TRIM AND BURR OPERATOR PT SLEPT THROUGHOUT THE NIGHT. WILL CONTINUE TO MONITOR.
[2018-12-10 07:22] LABS: ALANINE AMINOTRANSFERASE 23 U/L (12-78); ALBUMIN 3.2 g/dL (3.4-5.0); ALKALINE PHOSPHATASE 87 U/L (46-116); ASPARTATE AMINOTRANSFERASE 10 U/L (15-37); BILIRUBIN,TOTAL 0.4 mg/dL (0.2-1.0); CALCIUM, SERUM 9.1 mg/dL (8.5-10.1); CARBON DIOXIDE 36 mmol/L (21-32); CHLORIDE 100 mmol/L (98-107); CREATININE 2.6 mg/dL (0.6-1.3); GLUCOSE 111 mg/dL (74-106); MAGNESIUM 2.1 mg/dL (1.8-2.4); PHOSPHORUS 4.4 mg/dL (2.5-4.9); POTASSIUM 3.9 mmol/L (3.5-5.1); SODIUM SERUM 140 mmol/L (136-145); TOTAL PROTEIN, SERUM 6.9 g/dL (6.4-8.2); UREA NITROGEN, BLOOD 76 mg/dL (7-18)
[2018-12-10 07:38] LABS: BASOPHILS % (AUTO) 0.2 % (0.0-2.0); HEMATOCRIT 46 % (39-51); HEMOGLOBIN 15.4 g/dL (13.5-17.5); LYMPHOCYTES # (AUTO) 1.5 /CMM (0.8-4.8); LYMPHOCYTES % (AUTO) 16.5 % (20.0-44.0); MEAN CORPUSCULAR HGB CONC 34 g/dl (31.0-36.0); MEAN CORPUSCULAR VOLUME 98 fL (80-96); MONOCYTES # (AUTO) 0.9 /CMM (0.1-1.30); MONOCYTES % (AUTO) 9.5 % (2.0-12.0); NEUTROPHILS # (AUTO) 6.6 /CMM (1.8-8.9); NEUTROPHILS % (AUTO) 72.8 % (43.0-81.0); PLATELET COUNT (AUTO) 196 /CMM (150-450); RED BLOOD CELL COUNT(AUTO) 4.64 MIL/uL (4.5-6.0); WHITE BLOOD COUNT (AUTO) 9.1 K/uL (4.3-11.0)
[2018-12-10 08:00] VITALS: BP 95/68
[2018-12-10 09:00] VITALS: BP 95/68
[2018-12-10] MEDS: METOLAZONE 2.5 MG TABLET PO SCH (09:00)
[2018-12-10] MEDS: LOSARTAN POTASSIUM 50 MG TABLET PO SCH (09:00)
[2018-12-10] MEDS: CARVEDILOL 3.125 MG TABLET PO SCH (09:00)
[2018-12-10] MEDS: DUTASTERIDE (0.5 MG) 0.5 MG CAPSULE PO SCH (09:25)
[2018-12-10] MEDS: EZETIMIBE 10 MG TABLET PO SCH (09:25)
[2018-12-10] MEDS: PAROXETINE HCL 20 MG TABLET PO SCH (09:25)
[2018-12-10] MEDS: FUROSEMIDE 40 MG TABLET PO SCH (09:25)
[2018-12-10] MEDS: FLUTICASONE/VILANTEROL 1 EACH BLST.W.DEV IH SCH (09:25)
[2018-12-10] MEDS: SIMVASTATIN 20 MG TABLET PO SCH (09:25)
[2018-12-10] MEDS: TAMSULOSIN 0.4 MG CAP.SR.24H PO SCH (09:25)
[2018-12-10] MEDS: ALLOPURINOL 100 MG TABLET PO SCH (09:26)
[2018-12-10] MEDS: CYANOCOBALAMIN 500 MCG TABLET PO SCH (09:26)
[2018-12-10] MEDS: APIXABAN 5 MG TABLET PO SCH (09:26)
[2018-12-10] MEDS ORDERED: METO2.5T7 PO (11:55)
[2018-12-10] MEDS ORDERED: FURO40TA5 PO (11:55)
--- NOTE | 2018-12-10 14:18 | NUR ---
RN D/C NOTES PT DENIES ANY PAIN OR SOB AT PRESENT MOMENT IS EAGER TO GO HOME. PT HAS AND DAUGHTER AT BEDSIDE WHO WILL BE TAKING HIM HOME. EXITCARE AND DISCHARGE INSTRUCTIONS GIVEN AND BELONGINGS LIST SIGNED. PT TAKEN OUT BY WHEELCHAIR AND WILL BE GOING HOME IN PRIVATE CAR.
--- NOTE | 2018-12-10 14:34 | NUR ---
Social service consult requested by Dr. Mackey regarding pt. requesting verification of admission letter. SW completed letter and gave it to pt's RN to give to the pt.
== END 2018-12-10 15:23 | disposition home or self-care (01) | DRG 291 ==
LOC: ER 13:21 → TELE1 15:48 → MEDSG1 12-09 11:10
DX: I13.0 Hypertensive heart and chronic kidney disease with heart failure and stage 1 through stage 4 chronic kidney disease, or unspecified chronic kidney disease (principal); I50.23 Acute on chronic systolic (congestive) heart failure; N17.9 Acute kidney failure, unspecified; N18.9 Chronic kidney disease, unspecified; E78.5 Hyperlipidemia, unspecified; I25.10 Atherosclerotic heart disease of native coronary artery without angina pectoris; I25.5 Ischemic cardiomyopathy; G20 Parkinson's disease; F02.80 Dementia in other diseases classified elsewhere, unspecified severity, without behavioral disturbance, psychotic disturbance, mood disturbance, and anxiety; M10.9 Gout, unspecified; Z79.51 Long term (current) use of inhaled steroids; Z79.899 Other long term (current) drug therapy; T38.0X5A Adverse effect of glucocorticoids and synthetic analogues, initial encounter; Y92.009 Unspecified place in unspecified non-institutional (private) residence as the place of occurrence of the external cause; Z95.1 Presence of aortocoronary bypass graft; Z95.810 Presence of automatic (implantable) cardiac defibrillator; Z79.01 Long term (current) use of anticoagulants; N40.0 Benign prostatic hyperplasia without lower urinary tract symptoms; K21.9 Gastro-esophageal reflux disease without esophagitis; E66.9 Obesity, unspecified; Z72.0 Tobacco use; J45.909 Unspecified asthma, uncomplicated; I70.0 Atherosclerosis of aorta
CPT/HCPCS: 36415; 71045-TC; 76770-TC; 80048-TC; 80053-TC; 80061-TC; 80076-TC; 81000-TC; 82570-TC; 83735-TC; 83880; 84100-TC; 84155-TC; 84300-TC; 84443-TC; 84484-TC; 85025-TC; 87081-TC; 93307-TC; 97116-TC; 97530-TC; G0378; J1940; J2930

== ENCOUNTER 2019-02-24 04:13 | Inpatient (IN) | payer MEDICARE, OTHER ==
[~2019-02-24] VITALS: Ht 175.3 cm; Wt 77.6 kg
[~2019-02-24 04:13] MED LIST changes: +BUDE10.2 IH; -CARB1TAB19 PO; +DUTA0.5C PO; -EZET10TA14 PO; +EZET10TA16 PO; -FURO-144 PO; -FURO-145 PO; +FURO40TA5 PO; -INDO25CA18 PO; -METO2.5T2 PO; +METO2.5T7 PO; +SIMV-46 PO; -SIMV20TA6 PO
[2019-02-24] MEDS ORDERED: ALBUTEROL FS 2.5 MG/3 ML VIAL.NEB NEB ONE (04:30)
[2019-02-24] MEDS ORDERED: IPRATROPIUM NEB FS 0.5 MG/2.5 ML AMPUL.NEB NEB ONE (04:30)
[2019-02-24] MEDS ORDERED: IPRATROPIUM NEB FS 0.5 MG/2.5 ML AMPUL.NEB ONE ×2 (04:32→08:55)
[2019-02-24] MEDS ORDERED: ALBUTEROL FS 2.5 MG/3 ML VIAL.NEB ONE ×2 (04:32→08:55)
[2019-02-24 04:37] LABS: BASOPHILS % (AUTO) 0.3 % (0.0-2.0); EOSINOPHILS % (AUTO) 3.6 % (0.0-6.0); HEMATOCRIT 46 % (39-51); HEMOGLOBIN 15.8 g/dL (13.5-17.5); LYMPHOCYTES % (AUTO) 9.7 % (20.0-44.0); MEAN CORPUSCULAR HGB CONC 34 g/dl (31.0-36.0); MEAN CORPUSCULAR VOLUME 100 fL (80-96); MONOCYTES # (AUTO) 1.1 /CMM (0.1-1.30); MONOCYTES % (AUTO) 10.6 % (2.0-12.0); NEUTROPHILS # (AUTO) 8.1 /CMM (1.8-8.9); NEUTROPHILS % (AUTO) 75.8 % (43.0-81.0); PLATELET COUNT (AUTO) 151 /CMM (150-450); RED BLOOD CELL COUNT(AUTO) 4.62 MIL/uL (4.5-6.0); WHITE BLOOD COUNT (AUTO) 10.7 K/uL (4.3-11.0)
--- NOTE | 2019-02-24 04:40 | NUR ---
biba for evaluation of wheezing. per dtr, she called 911 due to low BP and hallucinating after taking sleeping medication. currently BP remained WNL and o2 sat: 97% on r/a but audible wheezing bilaterally .
[2019-02-24 04:45] LABS: CALCIUM, SERUM 9.6 mg/dL (8.5-10.1); CARBON DIOXIDE 32 mmol/L (21-32); CHLORIDE 101 mmol/L (98-107); CREATININE 2.9 mg/dL (0.6-1.3); GLUCOSE 117 mg/dL (74-106); POTASSIUM 4.2 mmol/L (3.5-5.1); SODIUM SERUM 141 mmol/L (136-145); UREA NITROGEN, BLOOD 63 mg/dL (7-18)
--- NOTE | 2019-02-24 04:49 | NUR ---
kanwal, CHAPITO , Luisa: [facility]wal does not have the lisdt of home meds available at this time. she will provide us with the list later.
[2019-02-24 04:58] LABS: ALANINE AMINOTRANSFERASE 12 U/L (12-78); ALKALINE PHOSPHATASE 97 U/L (46-116); ASPARTATE AMINOTRANSFERASE 12 U/L (15-37); B-TYPE NATRIURETIC PEPTIDE 6614 PG/ML (0-125); BILIRUBIN,DIRECT 0.2 mg/dL (0.0-0.2); BILIRUBIN,TOTAL 0.7 mg/dL (0.2-1.0); TOTAL PROTEIN, SERUM 7.8 g/dL (6.4-8.2)
[2019-02-24] MEDS ORDERED: FUROSEMIDE 40 MG/4 ML VIAL IV ONE (05:30)
[2019-02-24] MEDS ORDERED: FUROSEMIDE 40 MG/4 ML VIAL ONE (05:36)
[2019-02-24] MEDS ORDERED: Z GUARD REMEDY 2 OZ OINT TP PRN (06:00)
[2019-02-24] MEDS ORDERED: MAGNESIUM HYDROXIDE 30 ML UDC PO PRN (06:00)
[2019-02-24] MEDS ORDERED: ONDANSETRON HCL/PF 4 MG/2 ML VIAL IVP PRN (06:00)
[2019-02-24] MEDS ORDERED: ACETAMINOPHEN 325 MG TABLET PO PRN (06:00)
[2019-02-24] MEDS ORDERED: MAG HYDROX/AL HYDROX/SIMETH 30 ML UDC PO PRN (06:00)
--- NOTE | 2019-02-24 06:40 | NUR ---
PT IN BED AWAKE AND ALERT. BREATHING EVENLY. NAD. VSS. WILL CONT TO MONITOR ,
--- NOTE | 2019-02-24 07:36 | NUR ---
CALLED RAMAKRISHNA TO GIV REPORT. NURSE IS NOT AVAILABLE UNTIL 829. WILL ENDORSE TO DAY SHIFT TO F/U
--- NOTE | 2019-02-24 07:46 | NUR ---
RECEIVED REPORT FROM MARGOT DOE FOR MOHAMUD, NOT IN RESPIRATORY DISTRESS, V/S STABLE, KEPT RESTED AND COMFORTABLE. WILL CONTINUE TO MONITOR.
--- NOTE | 2019-02-24 08:50 | NUR ---
CALLED RAMAKRISHNA FOR REPORT NO RN AVAILABLE.
--- NOTE | 2019-02-24 08:57 | NUR ---
RT AT BEDSIDE FOR BREATHING TREATMENT.
[2019-02-24] MEDS: IPRATROPIUM NEB FS 0.5 MG/2.5 ML AMPUL.NEB NEB SCH ×3 (08:58→19:45)
[2019-02-24] MEDS: ALBUTEROL FS 2.5 MG/0.5 ML VIAL.NEB NEB SCH ×3 (08:58→19:45)
--- NOTE | 2019-02-24 09:20 | NUR ---
CALLED RAMAKRISHNA FOR REPORT, SPOKED TO ARISTIDES STATED NO RN AVAILABLE FOR REPORT, CHARGE NURSE AWARE.
--- NOTE | 2019-02-24 10:20 | NUR ---
REPORT GIVEN TO JACY.
[2019-02-24 10:45] VITALS: BP 108/70
--- NOTE | 2019-02-24 11:00 | NUR ---
LAW LIBRARIAN NOTE RECEIVED PATIENT FROM ER WITH DX COPD EXACERBATION ALERT WITH CONFUSION, SPEAKS AMHARIC , PLACED ON TELE WITH AFIB HR 65 , HOSPITAL ORIENTATION DONE PLACED ON 2 L NA AT THIS TIME , RT AC HL INTACT FLUSHED WELL , BED IN LOWEST AND LOCKED POSITION , CALL LIGHT WITHIN REACH ,WILL CONT TO MONITOR CLOSELY
[2019-02-24 12:00] VITALS: BP 113/78
--- NOTE | 2019-02-24 12:44 | NUR ---
chief telephone operator note breathing tx done by rt . will cont to monitor
--- NOTE | 2019-02-24 13:00 | NUR ---
FEED ELEVATOR WORKER NOTE OFFERED TO HAVE LUNCH BUT REFUSED OFFERED X2 ,WILL CONT TO MONITOR ,NO SOB AT THIS TIME
--- NOTE | 2019-02-24 13:00 | NUR ---
director television news note \per family refused to have flu vaccine and pna vaccine
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
--- NOTE | 2019-02-24 15:36 | NUR ---
BOARD ATTENDANT NOTE UA COLLECTED ORDERED ,FAMILY AT BEDSIDE
[2019-02-24 16:00] VITALS: BP 147/78
[2019-02-24] MEDS ORDERED: BUMETANIDE INJ 8 MG in IV NS 0.9% 48 ML IV ONE (16:00)
--- NOTE | 2019-02-24 17:18 | NUR ---
FIRE OFFICER NOTE RENAL US DONE CALLED [facility] OFFICE TO FAX A US PROGRESS NOTES WITH MEDS PER NAVAL ARCHITECT ORDER RECEIVED AND PLACED IN CHART Addendum: 02/24/19 at 1748 by JACY IGLESIAS RN cont on Pradeep denson ordered
[2019-02-24] MEDS: APIXABAN 2.5 MG TABLET PO SCH (17:24)
--- NOTE | 2019-02-24 18:42 | NUR ---
APARTMENT LEASING MANAGER NOTE ABLE TO URINATE WELL YELLOW COLOR URINE , STILL REFUSING TO HAVE DINNER , ALL NEEDS ATTENDED, CALL [facility] HOME WITHIN REACH
[2019-02-24 19:40] LABS: APPEARANCE,URINE Clear (CLEAR); BILIRUBIN,URINE Negative (NEGATIVE); BLOOD, URINE Trace-intact Ery/uL (NEGATIVE); COLOR,URINE Yellow (YELLOW); KETONES,URINE Negative (NEGATIVE); LEUKOCYTE ESTERASE ,URINE Negative (NEGATIVE); NITRITE, URINE Negative (NEGATIVE); PROTEIN,URINE Negative (NEGATIVE); UGLUCOSE Negative (NEGATIVE); UROBILINOGEN,URINE 0.2 EU/dL (0.2)
[2019-02-24 20:00] VITALS: BP 106/73
[2019-02-24 20:06] LABS: CREATININE, URINE 50.6 MG/DL (30.0-125.0); URINE TOTAL PROTEIN 21.3 mg/dL (0-11.9)
[2019-02-24 20:10] LABS: BACTERIA,URINE Rare /HPF (None Seen); SQUAMOUS EPITHELIAL CELL,UR Rare /HPF (None Seen)
[2019-02-24 20:12] LABS: HYALINE CASTS, URINE Moderate /LPF (None Seen); WBC,URINE 0-2 /HPF (0-3)
--- NOTE | 2019-02-24 20:30 | NUR ---
TRACK REPAIR PERSON OPENING NOTES RECEIVED REPORT FROM JACY FROST. PATIENT A/A/O X2-3 W/ SOME CONFUSION. MOSTLY SLOV[place]-SPEAKING BUT ABLE TO MAKE SOME NEEDS KNOWN & STATE PAIN. BREATHING EVEN & UNLABORED, TOLERATING O2 @ 2LPM VIA NC. DENIES ANY SOB OR DIFFICULTY BREATHING. ON TELE W/ A-FIB & V-PACING, HR 70S. RIGHT AC IV #20 INTACT & PATENT W/ DRESSING CDI & ONGOING BUMEX DRIP INFUSING WELL @ 10 ML/HR. ABLE TO USE URINAL & MOVE INDEPENDENTLY IN BED. DENIES ANY PAIN OR DISCOMFORT @ THIS TIME. SAFETY MEASURES KEPT IN PLACE W/ SIDE RAILS UP & BED ALARM ON. CALL LIGHT PLACED WITHIN REACH & INSTRUCTED TO CALL FOR ASSISTANCE. WILL CONTINUE TO MONITOR.
[2019-02-25] VITALS: BP 99/60
[2019-02-25 00:07] LABS: EOSINOPHIL,URINE None Seen
[2019-02-25 04:00] VITALS: BP 159/78
--- NOTE | 2019-02-25 07:20 | NUR ---
RN OPENING NOTES PATIENT IN BED, ASLEEP BUT EASILY AROUSABLE. ALERT AND ORIENTED X3. ON 2L NC, NO COMPLAINS OF ANY SOB NOR PAIN AT THIS TIME. ON TELE MONITOR, AFIB AT 77. HAS RIGHT FA #18 SALINE LOCKED. RECORDS FROM DR DALEY'S OFFICE IN PATIENT'S CHART. S/P BUMEX. PATIENT ON STRICT I AND O. PATIENT USES URINAL. BED LOCKED AND LOWEST POSITION. CALL LIGHT WITHIN REACH. WILL CONTINUE TO MONITOR
[2019-02-25] MEDS: ALBUTEROL FS 2.5 MG/0.5 ML VIAL.NEB NEB SCH ×4 (07:35→19:32)
[2019-02-25] MEDS: IPRATROPIUM NEB FS 0.5 MG/2.5 ML AMPUL.NEB NEB SCH ×4 (07:35→19:32)
[2019-02-25 08:00] VITALS: BP 91/61
[2019-02-25] MEDS: CARVEDILOL 3.125 MG TABLET PO SCH ×2 (08:14→22:29)
[2019-02-25] MEDS: APIXABAN 2.5 MG TABLET PO SCH ×2 (08:39→16:06)
--- NOTE | 2019-02-25 10:00 | NUR ---
RN NOTE FAMILY AT BEDSIDE, BROUGHT FOOD FROM HOME. UPDATED DAUGHTER ABOUT THE PATIENT AT THIS TIME
[2019-02-25 10:29] LABS: BASOPHILS % (AUTO) 0.2 % (0.0-2.0); EOSINOPHILS % (AUTO) 3.4 % (0.0-6.0); HEMATOCRIT 50 % (39-51); HEMOGLOBIN 16.8 g/dL (13.5-17.5); LYMPHOCYTES # (AUTO) 0.8 /CMM (0.8-4.8); LYMPHOCYTES % (AUTO) 9.2 % (20.0-44.0); MEAN CORPUSCULAR HGB CONC 34 g/dl (31.0-36.0); MEAN CORPUSCULAR VOLUME 99 fL (80-96); MONOCYTES # (AUTO) 1.2 /CMM (0.1-1.30); MONOCYTES % (AUTO) 12.6 % (2.0-12.0); NEUTROPHILS # (AUTO) 6.8 /CMM (1.8-8.9); NEUTROPHILS % (AUTO) 74.6 % (43.0-81.0); PLATELET COUNT (AUTO) 148 /CMM (150-450); RED BLOOD CELL COUNT(AUTO) 5.03 MIL/uL (4.5-6.0); WHITE BLOOD COUNT (AUTO) 9.2 K/uL (4.3-11.0)
[2019-02-25 10:41] LABS: CALCIUM, SERUM 9.9 mg/dL (8.5-10.1); CARBON DIOXIDE 36 mmol/L (21-32); CHLORIDE 98 mmol/L (98-107); CREATININE 2.8 mg/dL (0.6-1.3); GLUCOSE 104 mg/dL (74-106); MAGNESIUM 1.9 mg/dL (1.8-2.4); PHOSPHORUS 4.7 mg/dL (2.5-4.9); POTASSIUM 4.4 mmol/L (3.5-5.1); SODIUM SERUM 143 mmol/L (136-145); UREA NITROGEN, BLOOD 67 mg/dL (7-18)
[2019-02-25 10:51] LABS: CHOLESTEROL 145 mg/dL (<200); CREATINE KINASE, TOTAL 64 U/L (39-308); HDL CHOLESTEROL 39 mg/dL (40-60); LDL 90 mg/dL (0-99); THYROID STIMULATING HORMONE 0.673 uIU/mL (0.358-3.74); TRIGLYCERIDES 107 mg/dL (30-150)
[2019-02-25 12:00] VITALS: BP 105/75
--- NOTE | 2019-02-25 13:30 | NUR ---
RN NOTE RECEIVED A CALL FROM [facility], TALKED TO MOLLY. . WILL RELAY TO DIGITAL PHOTOGRAPHIC PRINTER.
--- NOTE | 2019-02-25 14:00 | NUR ---
RN NOTE SOMEONE CAME TO CHECK THE PATIENT'S PACEMAKER. HE RELAYED INFORMATION/RESULTS TO CARDIOLOGISTS: DR HOUSTON AND DR ABBOTT. PAPER RESULTS IN PATIENT'S CHART
[2019-02-25] MEDS: LOSARTAN POTASSIUM 50 MG TABLET PO SCH (14:30)
[2019-02-25] MEDS: SIMVASTATIN 20 MG TABLET PO SCH (14:50)
[2019-02-25] MEDS: ALLOPURINOL 100 MG TABLET PO SCH (14:51)
--- NOTE | 2019-02-25 14:51 | NUR ---
RN NOTE PATIENT'S BP 95/57, COZAAR NOT GIVEN
[2019-02-25 16:00] VITALS: BP 97/64
[2019-02-25] MEDS ORDERED: APIXABAN 5 MG TABLET PO SCH (17:00)
[2019-02-25] MEDS ORDERED: CARVEDILOL 3.125 MG TABLET PO SCH (17:00)
--- NOTE | 2019-02-25 17:07 | NUR ---
RN NOTE FAMILY AT BEDSIDE, PATIENT IS COMPLAINING OF BILATERAL LEGS NERVE PAIN. STATES, "IT FEELS LIKE IT IS SQUEEZING AND IT COMES AND GOES". DR MONSON MADE AWARE, NEW ORDER FOR US OF BILATERAL LEGS. ORDER CARRIED OUT ROUTINE
--- NOTE | 2019-02-25 18:59 | NUR ---
RN CLOSING NOTE PATIENT IN BED, AWAKE AND ALERT. ON 2L NC, NO COMPLAINS OF ANY SOB AND PAIN AT THIS TIME. EARLIER, WAS COMPLAINING OF LEG NERVE PAIN. ORDERED DUPLEX VENOUS TO R/O DVT. ALL MEDS GIVEN. ALL NEEDS MET. BED LOCKED AND IN LOWEST POSITION. CALL LIGHT WITHIN REACH. WILL ENDORSE TO NOC SHIFT FOR MOHAMUD
[2019-02-25 20:00] VITALS: BP 106/74
--- NOTE | 2019-02-25 20:15 | NUR ---
RN NOTES RELAYED BILATERAL UPPER EXTREMITY VENOUS DOPPLER RESULTS TO KARYNA TIMMONS & NO NEW ORDERS RECEIVED. PER KARYNA, CONTINUE TO MONITOR & FOLLOW UP W/ MD IN AM.
--- NOTE | 2019-02-25 20:30 | NUR ---
RN OPENING NOTES RECEIVED REPORT FROM BALBIR FROST. PATIENT A/A/O X2-3 W/ SOME CONFUSION. MOSTLY [place]/DUTCH-SPEAKING BUT ABLE TO MAKE SOME NEEDS KNOWN & STATE PAIN. BREATHING EVEN & UNLABORED, TOLERATING O2 @ 2LPM VIA NC. DENIES ANY SOB OR DIFFICULTY BREATHING. RADIAL PULSES PRESENT. DENIES ANY CHEST PAIN OR DISCOMFORT. RIGHT AC IV #18 INTACT & PATENT W/ DRESSING CDI, SALINE LOCKED. ABLE TO USE URINAL & MOVE INDEPENDENTLY IN BED. DENIES ANY PAIN OR DISCOMFORT @ THIS TIME. SAFETY MEASURES KEPT IN PLACE W/ SIDE RAILS UP & BED ALARM ON. CALL LIGHT PLACED WITHIN REACH & INSTRUCTED TO CALL FOR ASSISTANCE. WILL CONTINUE TO MONITOR.
[2019-02-25] MEDS: HYDROCODONE/APAP 5/325MG 1 EACH TABLET PO PRN (22:06)
[2019-02-26] VITALS (8 sets, daily range): BP systolic 87–147; BP diastolic 45–79
--- NOTE | 2019-02-26 07:00 | NUR ---
RN OPENING NOTE PATIENT IN BED, AWAKE AND ALERT. POLISH/PRYDEINIG SPEAKING ONLY BUT ABLE TO MAKE NEEDS KNOWN. 0730 - PATIENT IS HAVING BILATERAL LOWER EXTREMITIES PAIN AND WAS GIVEN PAIN MEDICATION LAST NIGHT. AN ORDER TO DO US OF BILATERAL UPPER EXTREMITIES DONE LAST NIGHT. POSITIVE FOR DVT. WILL RELAY TO MD TODAY ABOUT THE LEG PAIN. REPORT GIVEN TO MARGOT RUSSELL FOR MOHAMUD.
--- NOTE | 2019-02-26 07:50 | NUR ---
RN NOTE: RECEIVED PATIENT IN BED, AND BEDSIDE REPORT WAS GIVEN FROM MARGOT MCGREGOR. PATIENT WAS AWAKE, ALERT AND ABLE TO MAKE HIS NEEDS KNOWN. RESPIRATION EVEN AND UNLABORED ON O2 3L/MIN VIA NC SATURATING 98%. DENIED ANY PAIN. HOB ELEVATED. (R) FOREARM IV SITE NOTED PATENT AND INTACT. AFEBRILE. SKIN WARM TO TOUCH. BED ALARMED AND LOCKED AT ALL TIMES. BED ON LOWEST POSITION. CALL LIGHT WITHIN REACH. NEEDS ANTICIPATED.
[2019-02-26] MEDS: ALBUTEROL FS 2.5 MG/0.5 ML VIAL.NEB NEB SCH ×3 (07:55→19:54)
[2019-02-26] MEDS: IPRATROPIUM NEB FS 0.5 MG/2.5 ML AMPUL.NEB NEB SCH ×3 (07:55→19:54)
[2019-02-26] MEDS: METOLAZONE 2.5 MG TABLET PO SCH (09:00)
[2019-02-26] MEDS: CARVEDILOL 3.125 MG TABLET PO SCH ×2 (09:00→20:53)
[2019-02-26] MEDS: LOSARTAN POTASSIUM 50 MG TABLET PO SCH (09:00)
[2019-02-26] MEDS: EZETIMIBE 10 MG TABLET PO SCH (09:48)
[2019-02-26] MEDS: PAROXETINE HCL 20 MG TABLET PO SCH (09:48)
[2019-02-26] MEDS: ALLOPURINOL 100 MG TABLET PO SCH (09:48)
[2019-02-26] MEDS: DUTASTERIDE (0.5 MG) 0.5 MG CAPSULE PO SCH (09:48)
[2019-02-26] MEDS: POTASSIUM CHLORIDE 20 MEQ TAB.PRT.SR PO SCH (09:49)
[2019-02-26] MEDS: TAMSULOSIN 0.4 MG CAP.SR.24H PO SCH (09:49)
[2019-02-26] MEDS: SIMVASTATIN 20 MG TABLET PO SCH (09:49)
[2019-02-26] MEDS: FLUTICASONE/VILANTEROL 1 EACH BLST.W.DEV IH SCH (09:53)
[2019-02-26] MEDS: APIXABAN 2.5 MG TABLET PO SCH ×2 (09:54→17:03)
--- NOTE | 2019-02-26 10:26 | NUR ---
RN NOTE: INFORMED DR. LINK IN THE UNIT AND PAGED DR. MONSON REGARDING THE PATIENT'S LOW BP 89/65 HR= 75. PATIENT WAS COMPLAINING OF DIZZINESS AT THIS TIME. INFORMED PATIENT TO STAY IN BED AND BED ALARMED. PER DR. LINK, CONTINUE TO MONITOR AT THIS TIME. AWAITING FOR DR. MONSON TO MAKE ROUNDS. PATIENT MADE AWARE.
--- NOTE | 2019-02-26 10:41 | NUR ---
RN NOTE: DR. MONSON PRESENT IN THE UNIT AND HAD A MEXICAN SPEAKING NURSE (MARGOT BOB) TO TRANSLATE FOR THE DOCTOR. PER DR. MONSON, GIVE NEURONTIN 100MG PO 3X/DAY. ORDER NOTED AND CARRIED OUT.
--- NOTE | 2019-02-26 10:45 | NUR ---
RN NOTE: DR. MONSON WAS AWARE OF THE PATIENT'S PAIN ON THE (L) LEG. PER MD, NO NEED FOR AN ULTRASOUND. INSTEAD HE ORDERED NEURONTIN.
[2019-02-26] MEDS: GABAPENTIN 100 MG CAPSULE PO SCH ×3 (11:01→17:02)
--- NOTE | 2019-02-26 11:51 | NUR ---
RN NOTE: DR. LINK WAS INFORMED THAT THE PATIENT'S DAUGHTER MARIVEL WOULD LIKE TO SPEAK WITH HIM REGARDING THE NEXT PLAN FOR THE PATIENT. DAUGHTER MARIVEL'S CELLPHONE NUMBER [phone] AND ANOTHER DAUGHTER ANI [phone].
[2019-02-26 15:06] LABS: PTH, INTACT 156 pg/mL (15-65)
--- NOTE | 2019-02-26 17:43 | NUR ---
RN NOTE: ORTHOSTATIC BP WAS DONE AND REPORTED TO RYAN MARKS NP. PER Rosangela MARKS NP CONTINUE WITH THE IV FLUID AND THE IV BOLUS. CONTINUE TO MONITOR THE PATIENT'S BP. PATIENT DENIED ANY DIZZINESS. Addendum: 02/26/19 at 2016 by CRISTIAN DAILY RN ERROR IN CHARTING. WRONG PATIENT.
--- NOTE | 2019-02-26 19:00 | NUR ---
RECIEVED ALERT AND ORIENTATED VERBALIZES HIS NEEDS. MOVES ABOUT IN THE BED INDEPENDENTLY BED ALARM ON
--- NOTE | 2019-02-26 19:45 | NUR ---
RN NOTE: BEDSIDE REPORT WAS GIVEN TO PM SHIFT NURSE FOR CONTINUITY OF CARE. PATIENT REMAINED STABLE AT THIS TIME.
[2019-02-27] VITALS (7 sets, daily range): BP systolic 91–149; BP diastolic 52–106
--- NOTE | 2019-02-27 05:23 | NUR ---
RN NOTES: SLEPT THRU THE NIGHT. AMBULATED TO THE BATHROOM X1 GOOD BM UNSTEADY GAIT PLACED BACK IN BED AND ALARM SET. NO SOB THIS NIGHT. SATS THRU THE [facility] 96% ON 2 LITERS
[2019-02-27] MEDS: IPRATROPIUM NEB FS 0.5 MG/2.5 ML AMPUL.NEB NEB SCH ×3 (06:49→19:18)
[2019-02-27] MEDS: ALBUTEROL FS 2.5 MG/0.5 ML VIAL.NEB NEB SCH ×3 (06:50→19:18)
--- NOTE | 2019-02-27 07:25 | NUR ---
MS RN OPENING NOTE RECEIVED REPORT FROM [facility] SHIFT NURSE CHICHI. PT ASLEEP IN BED, ON 02 VIA NC 2L/MIN, SATURATING WELL, RESPIRATIONS EASY AND UNLABORED, NO SIGNS OF RESPIRATORY DISTRESS NOTED. IV SITE ON RIGHT FOREARM G18 WITH SALINE LOCK PATENT AND INTACT, LINE WAS FLUSHED WITH NS. BED IN LOW POSITION, LOCKED, CALL LIGHT WITHIN REACH.
[2019-02-27] MEDS: GABAPENTIN 100 MG CAPSULE PO SCH ×3 (08:06→16:18)
[2019-02-27] MEDS: TAMSULOSIN 0.4 MG CAP.SR.24H PO SCH (08:06)
[2019-02-27] MEDS: EZETIMIBE 10 MG TABLET PO SCH (08:06)
[2019-02-27] MEDS: DUTASTERIDE (0.5 MG) 0.5 MG CAPSULE PO SCH (08:06)
[2019-02-27] MEDS: CARVEDILOL 3.125 MG TABLET PO SCH ×2 (08:06→21:00)
[2019-02-27] MEDS: ALLOPURINOL 100 MG TABLET PO SCH (08:07)
[2019-02-27] MEDS: METOLAZONE 2.5 MG TABLET PO SCH (08:07)
[2019-02-27] MEDS: LOSARTAN POTASSIUM 50 MG TABLET PO SCH (08:07)
[2019-02-27] MEDS: SIMVASTATIN 20 MG TABLET PO SCH (08:10)
[2019-02-27] MEDS: POTASSIUM CHLORIDE 20 MEQ TAB.PRT.SR PO SCH (08:10)
[2019-02-27] MEDS: FLUTICASONE/VILANTEROL 1 EACH BLST.W.DEV IH SCH (08:10)
[2019-02-27] MEDS: APIXABAN 2.5 MG TABLET PO SCH ×2 (08:12→16:20)
[2019-02-27] MEDS: PAROXETINE HCL 20 MG TABLET PO SCH (08:14)
[2019-02-27] MEDS: HYDROCODONE/APAP 5/325MG 1 EACH TABLET PO PRN (10:12)
[2019-02-27 11:23] LABS: BASOPHILS # (AUTO) 0.1 /CMM (0.0-0.2); BASOPHILS % (AUTO) 0.5 % (0.0-2.0); EOSINOPHILS % (AUTO) 0.1 % (0.0-6.0); HEMATOCRIT 47 % (39-51); HEMOGLOBIN 15.8 g/dL (13.5-17.5); LYMPHOCYTES # (AUTO) 0.6 /CMM (0.8-4.8); LYMPHOCYTES % (AUTO) 4.1 % (20.0-44.0); MEAN CORPUSCULAR HGB CONC 34 g/dl (31.0-36.0); MEAN CORPUSCULAR VOLUME 98 fL (80-96); MONOCYTES # (AUTO) 1.5 /CMM (0.1-1.30); MONOCYTES % (AUTO) 9.7 % (2.0-12.0); NEUTROPHILS # (AUTO) 12.9 /CMM (1.8-8.9); NEUTROPHILS % (AUTO) 85.6 % (43.0-81.0); PLATELET COUNT (AUTO) 133 /CMM (150-450); RED BLOOD CELL COUNT(AUTO) 4.72 MIL/uL (4.5-6.0); WHITE BLOOD COUNT (AUTO) 15.1 K/uL (4.3-11.0)
[2019-02-27 11:36] LABS: CALCIUM, SERUM 9.2 mg/dL (8.5-10.1); CARBON DIOXIDE 31 mmol/L (21-32); CHLORIDE 94 mmol/L (98-107); CREATININE 2.8 mg/dL (0.6-1.3); GLUCOSE 135 mg/dL (74-106); MAGNESIUM 1.9 mg/dL (1.8-2.4); PHOSPHORUS 4.3 mg/dL (2.5-4.9); POTASSIUM 4.2 mmol/L (3.5-5.1); SODIUM SERUM 135 mmol/L (136-145)
[2019-02-27 11:39] LABS: UREA NITROGEN, BLOOD 83 mg/dL (7-18)
--- NOTE | 2019-02-27 11:39 | NUR ---
RECEIVED CALL FROM LAB WITH CRITICAL RESULT OF BUN 83- SPOKE WITH MALI. NOTIFIED PHYLLIS MONSON DNP.
--- NOTE | 2019-02-27 12:15 | NUR ---
IV SITE ON RIGHT AC BECAME DISLODGED, REMOVED IV. INSERTED NEW IV ON LEFT HAND G22, IV SITE PATENT, INTACT.
[2019-02-27] MEDS ORDERED: COLCHICINE 0.6 MG TABLET PO ONE (16:00)
--- NOTE | 2019-02-27 19:40 | NUR ---
MS RN NOTE, RECEIVED PATIENT IN BED, AWAKE AT THIS TIME, ON 02 VIA NC 2L/MIN, BREATHING EVEN AND UNLABORED, NO SOB/ACUTE RESPIRATORY DISTRESS NOTED AT THIS TIME, IV SITE ON LEFT HAND, 22G PATENT AND INTACT, BED LOCKED AND IN LOWEST POSITION , CALL LIGHT WITHIN REACH, WILL CONTINUE TO MONITOR CLOSELY.
[2019-02-28 04:00] VITALS: BP 109/57
[2019-02-28] MEDS: ALBUTEROL FS 2.5 MG/0.5 ML VIAL.NEB NEB SCH ×2 (07:43→14:00)
[2019-02-28] MEDS: IPRATROPIUM NEB FS 0.5 MG/2.5 ML AMPUL.NEB NEB SCH ×2 (07:43→14:00)
[2019-02-28 08:00] VITALS: BP 110/61
[2019-02-28] MEDS: DUTASTERIDE (0.5 MG) 0.5 MG CAPSULE PO SCH (09:00)
[2019-02-28] MEDS ORDERED: COLCHICINE 0.6 MG TABLET PO SCH (09:00)
[2019-02-28] MEDS: PAROXETINE HCL 20 MG TABLET PO SCH (09:00)
[2019-02-28] MEDS: POTASSIUM CHLORIDE 20 MEQ TAB.PRT.SR PO SCH (09:00)
[2019-02-28] MEDS: SIMVASTATIN 20 MG TABLET PO SCH (09:00)
[2019-02-28] MEDS: LOSARTAN POTASSIUM 50 MG TABLET PO SCH (09:00)
[2019-02-28 10:24] VITALS: BP 90/53
[2019-02-28] MEDS: CARVEDILOL 3.125 MG TABLET PO SCH (10:24)
--- NOTE | 2019-02-28 10:25 | NUR ---
ms rn notes held losartan due to bp 90/53 hr 73
[2019-02-28] MEDS: ALLOPURINOL 100 MG TABLET PO SCH (10:28)
[2019-02-28] MEDS: EZETIMIBE 10 MG TABLET PO SCH (10:33)
[2019-02-28] MEDS: TAMSULOSIN 0.4 MG CAP.SR.24H PO SCH (10:33)
[2019-02-28] MEDS: METOLAZONE 2.5 MG TABLET PO SCH (10:33)
[2019-02-28] MEDS: APIXABAN 2.5 MG TABLET PO SCH (10:39)
[2019-02-28] MEDS ORDERED: COLC0.6C3 PO (11:16)
[2019-02-28 12:06] LABS: *SPE A/G RATIO 1.1 (0.7-1.7); *SPE ALBUMIN 3.9 g/dL (2.9-4.4); *SPE ALPHA-1-GLOBULIN 0.3 g/dL (0.0-0.4); *SPE BETA GLOBULIN 1.2 g/dL (0.7-1.3); *SPE GLOBULIN, TOTAL 3.6 g/dL (2.2-3.9); *SPE M-SPIKE Not Observed g/dL (Not Observed); *SPEGAMMA GLOBULIN 1.1 g/dL (0.4-1.8)
== END 2019-02-28 15:05 | disposition home health service (06) | DRG 291 ==
LOC: ER 04:14 → TELE1 07:15 → MEDSG1 02-25 18:24
PROVIDERS: ADMIT Nurse Practitioner Acute Care; ATTEND Nurse Practitioner Acute Care
DX: I13.0 Hypertensive heart and chronic kidney disease with heart failure and stage 1 through stage 4 chronic kidney disease, or unspecified chronic kidney disease (principal); I50.23 Acute on chronic systolic (congestive) heart failure; N17.0 Acute kidney failure with tubular necrosis; I82.C12 Acute embolism and thrombosis of left internal jugular vein; N18.9 Chronic kidney disease, unspecified; I48.91 Unspecified atrial fibrillation; I25.10 Atherosclerotic heart disease of native coronary artery without angina pectoris; F17.210 Nicotine dependence, cigarettes, uncomplicated; D69.6 Thrombocytopenia, unspecified; F32.9 Major depressive disorder, single episode, unspecified; E78.5 Hyperlipidemia, unspecified; Z95.1 Presence of aortocoronary bypass graft; N40.0 Benign prostatic hyperplasia without lower urinary tract symptoms; Z95.810 Presence of automatic (implantable) cardiac defibrillator; I25.2 Old myocardial infarction; I25.5 Ischemic cardiomyopathy; D75.89 Other specified diseases of blood and blood-forming organs; K21.9 Gastro-esophageal reflux disease without esophagitis; J44.9 Chronic obstructive pulmonary disease, unspecified; M10.9 Gout, unspecified; R74.8 Abnormal levels of other serum enzymes; I45.10 Unspecified right bundle-branch block; Z79.01 Long term (current) use of anticoagulants; Z79.82 Long term (current) use of aspirin
CPT/HCPCS: 36415; 71045-TC; 73610-TC; 76770-TC; 80048-TC; 80061-TC; 80076-TC; 81000-TC; 82550-TC; 82570-TC; 83735-TC; 83880; 83970; 84100-TC; 84155; 84155-TC; 84165; 84300-TC; 84443-TC; 84484-TC; 84550-TC; 85025-TC; 85652-TC; 87081-TC; 94799-TC; A4216; G0378; J1940; J3490